=== PATIENT | female | born 1995 | race Caucasian/White ===

== ENCOUNTER 2018-01-19 05:51 | Emergency (ER) | payer BC ==
[~2018-01-19] VITALS: Ht 165.1 cm; Wt 44.2 kg
[~2018-01-19 05:51] MED LIST: CEPH500C5 PO; FLUO20CA22 PO; ONDA4TAB6 PO; PANT-47 PO; PRAZ1CAP5 PO
[2018-01-19] MEDS ORDERED: LORazepam 1 MG tablet PO ONE (06:20)
[2018-01-19] MEDS ORDERED: normal saline 1000ml 1,000 ML IV ONE ×2 (06:20→07:45)
[2018-01-19 07:06] LABS: BASOPHILS # (AUTO) 0.1 X10'3 (0-0.2); BASOPHILS % (AUTO) 0.3 % (0-1); EOSINOPHILS # (AUTO) 0.5 X10'3 (0-0.9); EOSINOPHILS % (AUTO) 2.1 % (0-6); HEMATOCRIT 35.1 % (35.0-45.0); HEMOGLOBIN 12.5 g/dl (12.0-16.0); LYMPHOCYTES # (AUTO) 1.1 X10'3 (1.1-4.8); LYMPHOCYTES % (AUTO) 5.1 % (21-51); MEAN CORPUSCULAR HEMOGLOBIN 31.1 PG (27.0-31.0); MEAN CORPUSCULAR HGB CONC 35.7 % (33.0-36.5); MEAN PLATELET VOLUME 8.8 FL (7.4-10.4); MONOCYTES # (AUTO) 1.3 X10'3 (0-0.9); MONOCYTES % (AUTO) 5.7 % (2-12); NEUTROPHILS # (AUTO) 19.5 X10'3 (1.8-7.7); NEUTROPHILS % (AUTO) 86.8 % (42-75); PLATELET COUNT 298 X10'3 (140-440); RED BLOOD COUNT 4.03 X10'6 (4.20-5.60); RED CELL DISTRIBUTION WIDTH 12.4 % (11.5-14.5); WHITE BLOOD COUNT 22.5 X10'3 (4.5-11.0)
[2018-01-19 07:14] LABS: URINE HCG NEGATIVE (NEG)
[2018-01-19 07:25] LABS: URINE AMPHETAMINE SCREEN NEGATIVE (Neg); URINE BARBITUATE SCREEN NEGATIVE (Neg); URINE BENZODIAZEPINES SCREEN NEGATIVE (Neg); URINE CANNABINOID SCREEN POSITIVE (Neg); URINE COCAINE SCREEN NEGATIVE (Neg); URINE METHADONE SCREEN NEGATIVE (Neg); URINE OPIATE SCREEN NEGATIVE (Neg); URINE PHENCYCLIDINE SCREEN NEGATIVE (Neg)
[2018-01-19 07:31] LABS: ALANINE AMINOTRANSFERASE 28 U/L (12-78); ALBUMIN 4.3 G/DL (3.4-5.0); ALBUMIN/GLOBULIN RATIO 1.2 (1.1-1.5); ALKALINE PHOSPHATASE 68 IU/L (46-116); ANION GAP 13 (8-16); ASPARTATE AMINO TRANSFERASE 24 U/L (10-37); BILIRUBIN,TOTAL 1.9 MG/DL (0.1-1.0); BLOOD UREA NITROGEN 27 MG/DL (7-18); BUN/CREATININE RATIO 39.7 (6.6-38.0); CALCIUM 9.3 MG/DL (8.5-10.1); CHLORIDE 103 MMOL/L (99-107); CREATININE 0.68 MG/DL (0.40-0.90); ETHANOL < 0.010 GM/DL (0.0-0.010); GLUCOSE 147 MG/DL (70-104); POTASSIUM 3.6 MMOL/L (3.5-5.1); SODIUM 141 MMOL/L (135-145); TOTAL CARBON DIOXIDE 24.6 MMOL/L (24-32); TOTAL PROTEIN 7.8 G/DL (6.4-8.2); eGFR > 90 ML/MIN
[2018-01-19 07:33] LABS: ACETAMINOPHEN < 2.0 UG/ML (10-30)
[2018-01-19 08:23] LABS: CLARITY,URINE TURBID (Clear); COLOR,URINE YELLOW (Yellow); GLUCOSE, URINE NEGATIVE (Neg); KETONES,URINE 40 mg/dl (Neg); LEUKOCYTE ESTERASE ,URINE NEGATIVE (Neg); NITRITES, URINE NEGATIVE (Neg); OCCULT BLOOD,URINE SMALL (Neg); PROTEIN,URINE 100 mg/dl (Neg); UROBILINOGEN,URINE 0.2 E.U/dL (0.2-1.0)
[2018-01-19] MEDS ORDERED: pantoprazole 40 MG vial IV ONE (08:25)
[2018-01-19 08:30] LABS: UA COLLECTION TYPE CLN CATCH MIDSTREAM
[2018-01-19] MEDS ORDERED: proCHLORperazine 10 MG/2 ml inj IV ONE (08:35)
[2018-01-19] MEDS ORDERED: ondansetron/PF 4mg/2ml inj IV ONE (08:35)
[2018-01-19 08:38] LABS: RBC,URINE 0-2 /HPF (0-2); WBC,URINE 0-4 /HPF (0-4)
[2018-01-19 08:39] LABS: AMORPHOUS URATES 4+
[2018-01-19 08:41] LABS: SQUAMOUS EPITHELIAL CELL,UR MANY /LPF (FEW)
[2018-01-19 08:43] LABS: BACTERIA,URINE 2+ /HPF (Neg); MUCUS STRANDS MODERATE /LPF (Neg)
[2018-01-19 09:42] LABS: TOTAL CELLS COUNTED 100
[2018-01-19 09:43] LABS: PLATELET ESTIMATE NORMAL; TOXIC GRANULATION 1+
[2018-01-19 10:26] VITALS: BP 108/51
== END 2018-01-19 10:29 | disposition home or self-care (01) ==
LOC: ER 05:52
DX: F41.9 Anxiety disorder, unspecified (principal); K29.70 Gastritis, unspecified, without bleeding; D72.829 Elevated white blood cell count, unspecified; J45.909 Unspecified asthma, uncomplicated; F32.9 Major depressive disorder, single episode, unspecified; F12.90 Cannabis use, unspecified, uncomplicated; Z88.0 Allergy status to penicillin; Z56.0 Unemployment, unspecified; Z88.2 Allergy status to sulfonamides; Z91.14 Patient's other noncompliance with medication regimen
CPT/HCPCS: 36415; 80053; 80305; 80320; 80329; 81001; 81025; 84443; 85025; 96361; 96374; 96375; 99284; C9113; J0780; J2405; J7030

== ENCOUNTER 2018-01-30 02:22 | Emergency (ER) | payer BC ==
[~2018-01-30] VITALS: Ht 165.1 cm; Wt 37.0 kg
[2018-01-30 02:50] LABS: URINE HCG NEGATIVE (NEG)
[2018-01-30 02:51] LABS: CLARITY,URINE SLIGHTLY CLOUDY (Clear); COLOR,URINE YELLOW (Yellow); GLUCOSE, URINE NEGATIVE (Neg); KETONES,URINE >=80 mg/dl (Neg); LEUKOCYTE ESTERASE ,URINE NEGATIVE (Neg); NITRITES, URINE NEGATIVE (Neg); OCCULT BLOOD,URINE SMALL (Neg); PH,URINE 5.5 (4.8-8.0); PROTEIN,URINE 30 mg/dl (Neg); UROBILINOGEN,URINE 0.2 E.U/dL (0.2-1.0)
[2018-01-30 02:55] LABS: UA COLLECTION TYPE CLN CATCH MIDSTREAM
[2018-01-30 03:01] LABS: MUCUS STRANDS MODERATE /LPF (Neg); SQUAMOUS EPITHELIAL CELL,UR MANY /LPF (FEW)
[2018-01-30 03:02] LABS: BACTERIA,URINE 1+ /HPF (Neg); RBC,URINE 0-2 /HPF (0-2); WBC,URINE 0-4 /HPF (0-4)
[2018-01-30] MEDS ORDERED: ondansetron 4mg rapidly disintigrating tab PO ONE (03:10)
[2018-01-30] MEDS ORDERED: pantoprazole 40mg Tablet.DR PO ONE (03:16)
[2018-01-30 04:26] LABS: URINE AMPHETAMINE SCREEN NEGATIVE (Neg); URINE BARBITUATE SCREEN NEGATIVE (Neg); URINE BENZODIAZEPINES SCREEN NEGATIVE (Neg); URINE CANNABINOID SCREEN POSITIVE (Neg); URINE COCAINE SCREEN NEGATIVE (Neg); URINE METHADONE SCREEN NEGATIVE (Neg); URINE OPIATE SCREEN NEGATIVE (Neg); URINE PHENCYCLIDINE SCREEN NEGATIVE (Neg)
[2018-01-30] MEDS ORDERED: ONDA4TAB9 PO (04:33)
[2018-01-30 05:33] VITALS: BP 134/107
[2018-01-30] MEDS ORDERED: pantoprazole 40mg Tablet.DR PO SCH (07:30)
== END 2018-01-30 05:34 | disposition home or self-care (01) ==
LOC: ER 02:22
DX: K29.00 Acute gastritis without bleeding (principal); F12.10 Cannabis abuse, uncomplicated; J45.909 Unspecified asthma, uncomplicated; Z88.0 Allergy status to penicillin; Z88.2 Allergy status to sulfonamides; Z56.0 Unemployment, unspecified; Z79.899 Other long term (current) drug therapy
CPT/HCPCS: 80305; 81001; 81025; 99284

== ENCOUNTER 2018-01-31 08:49 | Emergency (ER) | payer BC ==
[~2018-01-31] VITALS: Ht 165.1 cm; Wt 42.0 kg
[~2018-01-31 08:49] MED LIST changes: +ONDA4TAB9 PO
[2018-01-31 12:54] LABS: BASOPHILS % (AUTO) 0.2 % (0-1); EOSINOPHILS # (AUTO) 0.2 X10'3 (0-0.9); EOSINOPHILS % (AUTO) 1.3 % (0-6); HEMATOCRIT 33.3 % (35.0-45.0); HEMOGLOBIN 11.4 g/dl (12.0-16.0); LYMPHOCYTES # (AUTO) 2.3 X10'3 (1.1-4.8); LYMPHOCYTES % (AUTO) 18.3 % (21-51); MEAN CORPUSCULAR HEMOGLOBIN 30.5 PG (27.0-31.0); MEAN CORPUSCULAR HGB CONC 34.1 % (33.0-36.5); MEAN CORPUSCULAR VOLUME 89.4 FL (78-98); MEAN PLATELET VOLUME 8.1 FL (7.4-10.4); MONOCYTES # (AUTO) 0.8 X10'3 (0-0.9); MONOCYTES % (AUTO) 6.5 % (2-12); NEUTROPHILS # (AUTO) 9.3 X10'3 (1.8-7.7); NEUTROPHILS % (AUTO) 73.7 % (42-75); PLATELET COUNT 228 X10'3 (140-440); RED BLOOD COUNT 3.73 X10'6 (4.20-5.60); RED CELL DISTRIBUTION WIDTH 13.1 % (11.5-14.5); WHITE BLOOD COUNT 12.6 X10'3 (4.5-11.0)
[2018-01-31 13:07] LABS: CLARITY,URINE CLOUDY (Clear); COLOR,URINE YELLOW (Yellow); GLUCOSE, URINE NEGATIVE (Neg); KETONES,URINE TRACE mg/dl (Neg); LEUKOCYTE ESTERASE ,URINE NEGATIVE (Neg); NITRITES, URINE NEGATIVE (Neg); OCCULT BLOOD,URINE NEGATIVE (Neg); PH,URINE 6.5 (4.8-8.0); PROTEIN,URINE NEGATIVE (Neg); UA COLLECTION TYPE CLN CATCH MIDSTREAM; UROBILINOGEN,URINE 0.2 E.U/dL (0.2-1.0)
[2018-01-31 13:13] LABS: BACTERIA,URINE FEW /HPF (Neg); MUCUS STRANDS MODERATE /LPF (Neg); RBC,URINE NONE SEEN /HPF (0-2); SQUAMOUS EPITHELIAL CELL,UR FEW /LPF (FEW); WBC,URINE 0-4 /HPF (0-4)
[2018-01-31 13:14] LABS: AMORPHOUS URATES 2+
[2018-01-31 13:18] LABS: ALANINE AMINOTRANSFERASE 23 U/L (12-78); ALBUMIN 3.8 G/DL (3.4-5.0); ALBUMIN/GLOBULIN RATIO 1.2 (1.1-1.5); ALKALINE PHOSPHATASE 56 IU/L (46-116); ANION GAP 13 (8-16); ASPARTATE AMINO TRANSFERASE 16 U/L (10-37); BILIRUBIN,TOTAL 1.6 MG/DL (0.1-1.0); BLOOD UREA NITROGEN 15 MG/DL (7-18); BUN/CREATININE RATIO 27.8 (6.6-38.0); CALCIUM 8.7 MG/DL (8.5-10.1); CHLORIDE 102 MMOL/L (99-107); CREATININE 0.54 MG/DL (0.40-0.90); GLUCOSE 92 MG/DL (70-104); POTASSIUM 3.6 MMOL/L (3.5-5.1); SODIUM 139 MMOL/L (135-145); TOTAL CARBON DIOXIDE 24.4 MMOL/L (24-32); eGFR > 90 ML/MIN
[2018-01-31 13:27] LABS: URINE AMPHETAMINE SCREEN NEGATIVE (Neg); URINE BARBITUATE SCREEN NEGATIVE (Neg); URINE BENZODIAZEPINES SCREEN NEGATIVE (Neg); URINE CANNABINOID SCREEN POSITIVE (Neg); URINE COCAINE SCREEN NEGATIVE (Neg); URINE METHADONE SCREEN NEGATIVE (Neg); URINE OPIATE SCREEN NEGATIVE (Neg); URINE PHENCYCLIDINE SCREEN NEGATIVE (Neg)
[2018-01-31] MEDS ORDERED: LORazepam 2 mg/ml vial IV ONE (15:45)
[2018-01-31] MEDS ORDERED: normal saline 1000ml 1,000 ML IV ONE (15:45)
[2018-01-31] MEDS ORDERED: ondansetron/PF 4mg/2ml inj IV ONE (15:45)
[2018-02-01 06:03] VITALS: BP 97/70
[2018-02-01] MEDS ORDERED: LORazepam 1 MG tablet PO ONE (08:45)
== END 2018-02-01 13:30 | disposition home or self-care (01) ==
LOC: ER 08:49
DX: F31.9 Bipolar disorder, unspecified (principal); F41.9 Anxiety disorder, unspecified; R45.851 Suicidal ideations; R11.2 Nausea with vomiting, unspecified; J45.909 Unspecified asthma, uncomplicated; F12.10 Cannabis abuse, uncomplicated; Z56.0 Unemployment, unspecified; Z88.0 Allergy status to penicillin; Z88.2 Allergy status to sulfonamides; Z79.899 Other long term (current) drug therapy
CPT/HCPCS: 36415; 80053; 80305; 81001; 84443; 85025; 96361; 96374; 96375; 99284; J2060; J2405; J7030

== ENCOUNTER 2018-03-02 07:27 | Emergency (ER) | payer BC ==
[~2018-03-02] VITALS: Ht 165.1 cm; Wt 45.0 kg
[2018-03-02 07:47] LABS: BASOPHILS # (AUTO) 0.1 X10'3 (0-0.2); BASOPHILS % (AUTO) 0.5 % (0-1); EOSINOPHILS # (AUTO) 0.3 X10'3 (0-0.9); EOSINOPHILS % (AUTO) 1.5 % (0-6); HEMATOCRIT 38.4 % (35.0-45.0); HEMOGLOBIN 13.4 g/dl (12.0-16.0); LYMPHOCYTES # (AUTO) 0.8 X10'3 (1.1-4.8); MEAN CORPUSCULAR HEMOGLOBIN 31.3 PG (27.0-31.0); MEAN CORPUSCULAR VOLUME 89.6 FL (78-98); MEAN PLATELET VOLUME 8.4 FL (7.4-10.4); MONOCYTES # (AUTO) 0.3 X10'3 (0-0.9); MONOCYTES % (AUTO) 1.4 % (2-12); NEUTROPHILS # (AUTO) 19.5 X10'3 (1.8-7.7); NEUTROPHILS % (AUTO) 92.6 % (42-75); PLATELET COUNT 309 X10'3 (140-440); RED BLOOD COUNT 4.29 X10'6 (4.20-5.60); RED CELL DISTRIBUTION WIDTH 13.1 % (11.5-14.5)
[2018-03-02 08:01] LABS: ALANINE AMINOTRANSFERASE 22 U/L (12-78); ALBUMIN 4.6 G/DL (3.4-5.0); ALBUMIN/GLOBULIN RATIO 1.2 (1.1-1.5); ALKALINE PHOSPHATASE 73 IU/L (46-116); ANION GAP 19 (8-16); ASPARTATE AMINO TRANSFERASE 14 U/L (10-37); BILIRUBIN,TOTAL 2.6 MG/DL (0.1-1.0); BLOOD UREA NITROGEN 21 MG/DL (7-18); BUN/CREATININE RATIO 20.2 (6.6-38.0); CALCIUM 9.7 MG/DL (8.5-10.1); CHLORIDE 100 MMOL/L (99-107); CREATININE 1.04 MG/DL (0.40-0.90); GLUCOSE 166 MG/DL (70-104); POTASSIUM 3.7 MMOL/L (3.5-5.1); SODIUM 137 MMOL/L (135-145); TOTAL PROTEIN 8.4 G/DL (6.4-8.2); eGFR 67 ML/MIN
[2018-03-02 08:14] LABS: INR 1.1 INR; PROTHROMBIN TIME 11.4 SECONDS (9.0-12.0)
[2018-03-02 08:15] LABS: CLARITY,URINE SLIGHTLY CLOUDY (Clear); COLOR,URINE YELLOW (Yellow); GLUCOSE, URINE NEGATIVE (Neg); KETONES,URINE >=80 mg/dl (Neg); LEUKOCYTE ESTERASE ,URINE NEGATIVE (Neg); NITRITES, URINE NEGATIVE (Neg); OCCULT BLOOD,URINE TRACE-INTACT (Neg); PROTEIN,URINE 100 mg/dl (Neg); URINE HCG NEGATIVE (NEG); UROBILINOGEN,URINE 0.2 E.U/dL (0.2-1.0)
[2018-03-02 08:24] LABS: UA COLLECTION TYPE CLN CATCH MIDSTREAM
[2018-03-02 08:39] LABS: MUCUS STRANDS MANY /LPF (Neg); SQUAMOUS EPITHELIAL CELL,UR MANY /LPF (FEW)
[2018-03-02 08:40] LABS: BACTERIA,URINE 1+ /HPF (Neg); RBC,URINE 0-2 /HPF (0-2); WBC,URINE 0-4 /HPF (0-4); YEAST FEW /HPF (NEGATIVE)
[2018-03-02] MEDS ORDERED: ondansetron/PF 4mg/2ml inj IV ONE (09:25)
[2018-03-02] MEDS ORDERED: normal saline 1000ML IV soln IV ONE (09:35)
[2018-03-02 10:04] LABS: LIPASE 119 U/L (73-393)
[2018-03-02] MEDS ORDERED: PANT40TA4 PO (10:43)
[2018-03-02] MEDS ORDERED: ONDA4TAB6 PO (10:43)
[2018-03-02] MEDS ORDERED: SUCR1ORA2 PO (10:43)
[2018-03-02 10:48] VITALS: BP 107/63
== END 2018-03-02 10:52 | disposition home or self-care (01) ==
LOC: ER 07:28
DX: R10.13 Epigastric pain (principal); R11.10 Vomiting, unspecified; D72.829 Elevated white blood cell count, unspecified; J45.909 Unspecified asthma, uncomplicated; F12.10 Cannabis abuse, uncomplicated; Z56.0 Unemployment, unspecified; Z88.0 Allergy status to penicillin; Z88.2 Allergy status to sulfonamides; Z79.899 Other long term (current) drug therapy
CPT/HCPCS: 36415; 80053; 81001; 81025; 83605; 83690; 84145; 85025; 85610; 87040; 96361; 96374; 99284; J2405; J7030

== ENCOUNTER 2018-03-29 08:17 | Emergency (ER) | payer BC, OTHER ==
[~2018-03-29] VITALS: Ht 5451.6 cm; Wt 46.7 kg
[~2018-03-29 08:17] MED LIST changes: -ONDA4TAB9 PO; +PANT40TA4 PO; +SUCR1ORA2 PO
[2018-03-29 08:51] LABS: BASOPHILS % (AUTO) 0.1 % (0-1); EOSINOPHILS # (AUTO) 0.2 X10'3 (0-0.9); EOSINOPHILS % (AUTO) 1.9 % (0-6); HEMATOCRIT 39.4 % (35.0-45.0); HEMOGLOBIN 13.5 g/dl (12.0-16.0); LYMPHOCYTES % (AUTO) 10.1 % (21-51); MEAN CORPUSCULAR HEMOGLOBIN 30.9 PG (27.0-31.0); MEAN CORPUSCULAR HGB CONC 34.4 % (33.0-36.5); MEAN PLATELET VOLUME 8.6 FL (7.4-10.4); MONOCYTES # (AUTO) 1.3 X10'3 (0-0.9); MONOCYTES % (AUTO) 13.4 % (2-12); NEUTROPHILS % (AUTO) 74.5 % (42-75); PLATELET COUNT 274 X10'3 (140-440); RED BLOOD COUNT 4.37 X10'6 (4.20-5.60); RED CELL DISTRIBUTION WIDTH 12.8 % (11.5-14.5); WHITE BLOOD COUNT 9.4 X10'3 (4.5-11.0)
[2018-03-29] MEDS ORDERED: LORazepam 2 mg/ml vial IV ONE (09:00)
[2018-03-29] MEDS ORDERED: morphine 4 MG/ML inj SYRINge IV ONE (09:00)
[2018-03-29] MEDS ORDERED: normal saline 1000ML IV soln IVB ONE (09:00)
[2018-03-29 09:01] LABS: PROTHROMBIN TIME 10.7 SECONDS (9.0-12.0)
[2018-03-29 09:02] LABS: CLARITY,URINE CLOUDY (Clear); GLUCOSE, URINE NEGATIVE (Neg); KETONES,URINE TRACE mg/dl (Neg); LEUKOCYTE ESTERASE ,URINE NEGATIVE (Neg); NITRITES, URINE NEGATIVE (Neg); OCCULT BLOOD,URINE NEGATIVE (Neg); PROTEIN,URINE 30 mg/dl (Neg)
[2018-03-29 09:03] LABS: URINE HCG NEGATIVE (NEG)
[2018-03-29 09:04] LABS: COLOR,URINE DARK YELLOW (Yellow); UA COLLECTION TYPE CLN CATCH MIDSTREAM
[2018-03-29 09:06] LABS: ALANINE AMINOTRANSFERASE 26 U/L (12-78); ALBUMIN 4.2 G/DL (3.4-5.0); ALBUMIN/GLOBULIN RATIO 1.1 (1.1-1.5); ALKALINE PHOSPHATASE 71 IU/L (46-116); ANION GAP 14 (8-16); ASPARTATE AMINO TRANSFERASE 28 U/L (10-37); BILIRUBIN,TOTAL 1.5 MG/DL (0.1-1.0); BLOOD UREA NITROGEN 16 MG/DL (7-18); BUN/CREATININE RATIO 18.2 (6.6-38.0); CALCIUM 9.4 MG/DL (8.5-10.1); CHLORIDE 100 MMOL/L (99-107); CREATININE 0.88 MG/DL (0.40-0.90); GLUCOSE 115 MG/DL (70-104); POTASSIUM 3.6 MMOL/L (3.5-5.1); SODIUM 137 MMOL/L (135-145); TOTAL CARBON DIOXIDE 23.3 MMOL/L (24-32); TOTAL PROTEIN 7.9 G/DL (6.4-8.2); eGFR 81 ML/MIN
[2018-03-29 09:14] LABS: BACTERIA,URINE FEW /HPF (Neg); MUCUS STRANDS FEW /LPF (Neg); SQUAMOUS EPITHELIAL CELL,UR MANY /LPF (FEW)
[2018-03-29 09:21] LABS: MAGNESIUM 1.9 MG/DL (1.5-2.4)
[2018-03-29 10:39] VITALS: BP 112/62
[2018-03-29] MEDS ORDERED: CAPS60CR6 TP ×2 (11:10→11:15)
== END 2018-03-29 11:48 | disposition home or self-care (01) ==
LOC: ER 08:17
DX: G43.A0 Cyclical vomiting, in migraine, not intractable (principal); E86.0 Dehydration; J45.909 Unspecified asthma, uncomplicated; F12.10 Cannabis abuse, uncomplicated; Z56.0 Unemployment, unspecified; Z88.0 Allergy status to penicillin; Z88.2 Allergy status to sulfonamides; Z79.899 Other long term (current) drug therapy
CPT/HCPCS: 36415; 80053; 81001; 81025; 83735; 85025; 85610; 96361; 96374; 96375; 99284; J2060; J2270; J7030

== ENCOUNTER 2018-05-12 18:15 | Emergency (ER) | payer BC, OTHER ==
[~2018-05-12] VITALS: Ht 165.1 cm; Wt 47.8 kg
[~2018-05-12 18:15] MED LIST changes: +CAPS60CR6 TP
[2018-05-12 18:36] VITALS: BP 131/71
[2018-05-13] MEDS ORDERED: OLAN5TAB5 PO (08:18)
[2018-05-13] MEDS ORDERED: PROP10TA10 PO (08:18)
[2018-05-14] MEDS ORDERED: ONDA4TAB9 PO (10:11)
== END 2018-05-12 21:18 | disposition left against medical advice (07) ==
LOC: ER 18:15
DX: R11.10 Vomiting, unspecified (principal); Z53.21 Procedure and treatment not carried out due to patient leaving prior to being seen by health care provider

== ENCOUNTER 2018-06-06 05:54 | Emergency (ER) | payer BC ==
[~2018-06-06 05:54] MED LIST changes: -CAPS60CR6 TP; -CEPH500C5 PO; -FLUO20CA22 PO; +OLAN5TAB5 PO; -ONDA4TAB6 PO; +ONDA4TAB9 PO; -PANT-47 PO; -PANT40TA4 PO; -PRAZ1CAP5 PO; +PROP10TA10 PO; -SUCR1ORA2 PO
[2018-06-06] MEDS ORDERED: POTA20TA19 PO (12:24)
== END 2018-06-06 08:02 | disposition left against medical advice (07) ==
LOC: ER 05:55
DX: R11.2 Nausea with vomiting, unspecified (principal); Z53.21 Procedure and treatment not carried out due to patient leaving prior to being seen by health care provider

== ENCOUNTER 2018-06-06 08:44 | Emergency (ER) | payer BC ==
[~2018-06-06] VITALS: Ht 165.1 cm; Wt 48.0 kg
[2018-06-06 09:15] LABS: BASOPHILS # (AUTO) 0.1 X10'3 (0-0.2); BASOPHILS % (AUTO) 0.2 % (0-1); EOSINOPHILS % (AUTO) 0 % (0-6); HEMATOCRIT 38.1 % (35.0-45.0); HEMOGLOBIN 13.2 g/dl (12.0-16.0); LYMPHOCYTES # (AUTO) 0.8 X10'3 (1.1-4.8); MEAN CORPUSCULAR HEMOGLOBIN 31.1 PG (27.0-31.0); MEAN CORPUSCULAR HGB CONC 34.7 % (33.0-36.5); MEAN CORPUSCULAR VOLUME 89.4 FL (78-98); MEAN PLATELET VOLUME 8.7 FL (7.4-10.4); MONOCYTES # (AUTO) 0.8 X10'3 (0-0.9); MONOCYTES % (AUTO) 3.1 % (2-12); NEUTROPHILS # (AUTO) 24.1 X10'3 (1.8-7.7); NEUTROPHILS % (AUTO) 93.7 % (42-75); PLATELET COUNT 281 X10'3 (140-440); RED BLOOD COUNT 4.26 X10'6 (4.20-5.60); RED CELL DISTRIBUTION WIDTH 12.8 % (11.5-14.5)
[2018-06-06 09:17] LABS: WHITE BLOOD COUNT 25.8 X10'3 (4.5-11.0)
[2018-06-06] MEDS ORDERED: normal saline 1000ML IV soln IVB ONE ×3 (09:25→11:35)
[2018-06-06] MEDS ORDERED: ondansetron/PF 4mg/2ml inj IV ONE ×2 (09:25→11:10)
[2018-06-06 09:29] LABS: ALANINE AMINOTRANSFERASE 18 U/L (12-78); ALBUMIN 4.3 G/DL (3.4-5.0); ALBUMIN/GLOBULIN RATIO 1.1 (1.1-1.5); ALKALINE PHOSPHATASE 79 IU/L (46-116); ANION GAP 14 (8-16); ASPARTATE AMINO TRANSFERASE 15 U/L (10-37); BILIRUBIN,TOTAL 1.3 MG/DL (0.1-1.0); BLOOD UREA NITROGEN 20 MG/DL (7-18); CALCIUM 9.4 MG/DL (8.5-10.1); CHLORIDE 102 MMOL/L (99-107); CREATININE 0.74 MG/DL (0.40-0.90); GLUCOSE 136 MG/DL (70-104); SODIUM 138 MMOL/L (135-145); TOTAL CARBON DIOXIDE 21.6 MMOL/L (24-32); TOTAL CELLS COUNTED 100; TOTAL PROTEIN 8.2 G/DL (6.4-8.2); eGFR > 90 ML/MIN
[2018-06-06 09:30] LABS: PLATELET ESTIMATE NORMAL
[2018-06-06 09:31] LABS: POTASSIUM 2.9 MMOL/L (3.5-5.1)
[2018-06-06 10:24] LABS: URINE HCG NEGATIVE (NEG)
[2018-06-06 10:25] LABS: CLARITY,URINE SLIGHTLY CLOUDY (Clear); COLOR,URINE YELLOW (Yellow); GLUCOSE, URINE NEGATIVE (Neg); KETONES,URINE >=80 mg/dl (Neg); LEUKOCYTE ESTERASE ,URINE TRACE (Neg); NITRITES, URINE NEGATIVE (Neg); OCCULT BLOOD,URINE MODERATE (Neg); PH,URINE 8.5 (4.8-8.0); PROTEIN,URINE 30 mg/dl (Neg); UA COLLECTION TYPE CLN CATCH MIDSTREAM; UROBILINOGEN,URINE 0.2 E.U/dL (0.2-1.0)
[2018-06-06 10:31] LABS: RBC,URINE 0-2 /HPF (0-2); WBC,URINE 0-4 /HPF (0-4)
[2018-06-06 10:32] LABS: BACTERIA,URINE FEW /HPF (Neg); MUCUS STRANDS NONE SEEN /LPF (Neg); SQUAMOUS EPITHELIAL CELL,UR FEW /LPF (FEW)
[2018-06-06] MEDS ORDERED: potassium 10mEq/100ml NS w/LIDOcaine (10mg/bag) IV ONE (10:35)
[2018-06-06] MEDS ORDERED: CefTRIAXone 2gm/D5W 50ml 50 ML IV ONE (10:35)
[2018-06-06 10:37] LABS: URINE AMPHETAMINE SCREEN NEGATIVE (Neg); URINE BARBITUATE SCREEN NEGATIVE (Neg); URINE BENZODIAZEPINES SCREEN NEGATIVE (Neg); URINE CANNABINOID SCREEN POSITIVE (Neg); URINE COCAINE SCREEN NEGATIVE (Neg); URINE METHADONE SCREEN NEGATIVE (Neg); URINE OPIATE SCREEN NEGATIVE (Neg); URINE PHENCYCLIDINE SCREEN NEGATIVE (Neg)
[2018-06-06] MEDS ORDERED: morphine 4 MG/ML inj SYRINge IV ONE (11:10)
[2018-06-06] MEDS ORDERED: POTA20TA19 PO (12:24)
[2018-06-06 13:28] VITALS: BP 98/67
== END 2018-06-06 13:20 | disposition home or self-care (01) ==
LOC: ER 08:44
DX: R10.13 Epigastric pain (principal); R11.10 Vomiting, unspecified; E87.6 Hypokalemia; F12.90 Cannabis use, unspecified, uncomplicated; J45.909 Unspecified asthma, uncomplicated; Z88.0 Allergy status to penicillin; Z88.2 Allergy status to sulfonamides; Z79.899 Other long term (current) drug therapy; Z56.0 Unemployment, unspecified
CPT/HCPCS: 36415; 71045; 74176; 80053; 80305; 81001; 81025; 83605; 84145; 85025; 87040; 87088; 93005; 96365; 96366; 96368; 96375; 96376; 99285; J0696; J2270; J2405; J3480; J7030

== ENCOUNTER 2018-08-10 07:50 | Emergency (ER) | payer BC ==
[~2018-08-10] VITALS: Ht 160 cm; Wt 49.9 kg
[~2018-08-10 07:50] MED LIST changes: -ONDA4TAB9 PO; +POTA20TA19 PO
[2018-08-10] MEDS ORDERED: proCHLORperazine 10 MG/2 ml inj IV ONE (08:15)
[2018-08-10] MEDS ORDERED: normal saline 1000ML IV soln IVB ONE (08:15)
[2018-08-10] MEDS ORDERED: LORazepam 2 mg/ml vial IV ONE (08:15)
[2018-08-10 08:31] LABS: BASOPHILS # (AUTO) 0.1 X10'3 (0-0.2); BASOPHILS % (AUTO) 0.2 % (0-1); EOSINOPHILS # (AUTO) 0.4 X10'3 (0-0.9); EOSINOPHILS % (AUTO) 1.8 % (0-6); HEMATOCRIT 37.6 % (35.0-45.0); HEMOGLOBIN 12.8 g/dl (12.0-16.0); LYMPHOCYTES # (AUTO) 1.1 X10'3 (1.1-4.8); LYMPHOCYTES % (AUTO) 4.4 % (21-51); MEAN CORPUSCULAR HEMOGLOBIN 30.7 PG (27.0-31.0); MEAN CORPUSCULAR HGB CONC 34.1 % (33.0-36.5); MEAN CORPUSCULAR VOLUME 89.9 FL (78-98); MEAN PLATELET VOLUME 8.4 FL (7.4-10.4); MONOCYTES # (AUTO) 0.4 X10'3 (0-0.9); MONOCYTES % (AUTO) 1.6 % (2-12); NEUTROPHILS # (AUTO) 22.3 X10'3 (1.8-7.7); PLATELET COUNT 305 X10'3 (140-440); RED BLOOD COUNT 4.18 X10'6 (4.20-5.60); RED CELL DISTRIBUTION WIDTH 13.7 % (11.5-14.5); WHITE BLOOD COUNT 24.2 X10'3 (4.5-11.0)
[2018-08-10 08:42] LABS: INR 1.1 INR; PROTHROMBIN TIME 10.9 SECONDS (9.0-12.0)
[2018-08-10 08:46] LABS: ALANINE AMINOTRANSFERASE 17 U/L (12-78); ALBUMIN 4.4 G/DL (3.4-5.0); ALBUMIN/GLOBULIN RATIO 1.3 (1.1-1.5); ALKALINE PHOSPHATASE 74 IU/L (46-116); ANION GAP 15 (8-16); ASPARTATE AMINO TRANSFERASE 14 U/L (10-37); BILIRUBIN,TOTAL 1.5 MG/DL (0.1-1.0); BLOOD UREA NITROGEN 20 MG/DL (7-18); BUN/CREATININE RATIO 25.6 (6.6-38.0); CALCIUM 9.3 MG/DL (8.5-10.1); CHLORIDE 103 MMOL/L (99-107); CREATININE 0.78 MG/DL (0.40-0.90); ETHANOL < 0.010 GM/DL (0.0-0.010); GLUCOSE 155 MG/DL (70-104); POTASSIUM 3.6 MMOL/L (3.5-5.1); SODIUM 139 MMOL/L (135-145); TOTAL CARBON DIOXIDE 20.7 MMOL/L (24-32); TOTAL PROTEIN 7.8 G/DL (6.4-8.2); eGFR > 90 ML/MIN
[2018-08-10 08:58] LABS: CLARITY,URINE TURBID (Clear); COLOR,URINE YELLOW (Yellow); GLUCOSE, URINE NEGATIVE (Neg); KETONES,URINE >=80 mg/dl (Neg); LEUKOCYTE ESTERASE ,URINE TRACE (Neg); NITRITES, URINE NEGATIVE (Neg); OCCULT BLOOD,URINE LARGE (Neg); PROTEIN,URINE 100 mg/dl (Neg); URINE HCG NEGATIVE (NEG)
[2018-08-10 09:02] LABS: UA COLLECTION TYPE CLN CATCH MIDSTREAM
[2018-08-10 09:04] LABS: MUCUS STRANDS MANY /LPF (Neg); SQUAMOUS EPITHELIAL CELL,UR MANY /LPF (FEW)
[2018-08-10 09:07] LABS: AMORPHOUS PHOSPHATES 4+; BACTERIA,URINE FEW /HPF (Neg); RBC,URINE TNTC /HPF (0-2); WBC,URINE 0-4 /HPF (0-4)
[2018-08-10 09:08] LABS: URINE AMPHETAMINE SCREEN NEGATIVE (Neg); URINE BARBITUATE SCREEN NEGATIVE (Neg); URINE BENZODIAZEPINES SCREEN NEGATIVE (Neg); URINE CANNABINOID SCREEN POSITIVE (Neg); URINE COCAINE SCREEN NEGATIVE (Neg); URINE METHADONE SCREEN NEGATIVE (Neg); URINE OPIATE SCREEN NEGATIVE (Neg); URINE PHENCYCLIDINE SCREEN NEGATIVE (Neg)
[2018-08-10] MEDS ORDERED: ONDA8TAB9 PO (10:59)
[2018-08-10 11:24] VITALS: BP 124/74
== END 2018-08-10 11:25 | disposition home or self-care (01) ==
LOC: ER 07:51
DX: R11.2 Nausea with vomiting, unspecified (principal); J45.909 Unspecified asthma, uncomplicated; F12.90 Cannabis use, unspecified, uncomplicated; Z56.0 Unemployment, unspecified; Z88.0 Allergy status to penicillin; Z88.2 Allergy status to sulfonamides; Z79.899 Other long term (current) drug therapy
CPT/HCPCS: 36415; 80053; 80305; 80320; 81001; 81025; 85025; 85610; 96361; 96374; 96375; 99285; J0780; J2060; J7030

== ENCOUNTER 2019-02-21 22:42 | Emergency (ER) | payer BC ==
[~2019-02-21] VITALS: Ht 165.1 cm; Wt 54.5 kg
[~2019-02-21 22:42] MED LIST changes: +ONDA8TAB9 PO
[2019-02-21 22:55] VITALS: BP 125/79
--- NOTE | 2019-02-21 23:06 | NUR ---
PT CAME INTO TRIAGE HOLDING EMESIS BAG WITH [id number] MLS OF YELLOW LIQUID IN IT, CLEAR. WHEN TRIAGING SHE SUMMONS HER MOM TO GIVE HER THE LEMONAIDE. I SAID, DO NOT DRINK THAT. SHE SAID 'I HAVE TO, I'M GOING TO, THIS WILL BE THE LAST TIME.' AND GULPS SOME LEMONADE. SEVERAL GULPS. MADE AWARE. PATIENT'S MOTHER ALSO STATES THAT HER PSYCHIATRIST SAYS THAT IT IS NOT THE MARIJUANA THAT IS CAUSING THE CYCLIC VOMITING. PATIENT ASKED ME IF DR BARRAGAN WAS HERE "HE DOESN'T BELIEVE ME, HE THINKS ITS THE MARIJUANA."
--- NOTE | 2019-02-21 23:09 | NUR ---
ALSO: MOM SAYS THAT SHE CANNOT GET HER ATIVAN FROM THE PSYCHIATRIST BECAUSE SHE PHYSICALLY NEEDS TO GO THERE TO GET 'URINE CLEARED' BUT HASN'T DONE THIS.
--- NOTE | 2019-02-21 23:33 | NUR ---
RECEIVED REPORT FROM KIERAN CARRILLO. PT SLEEPING IN ROOM AND APPEARS IN NAD. REFUSING VITALS MACHINE REATTACHMENT AND UA
[2019-02-21 23:38] LABS: BASOPHILS # (AUTO) 0.1 X10'3 (0-0.2); BASOPHILS % (AUTO) 0.7 % (0-1); EOSINOPHILS # (AUTO) 0.1 X10'3 (0-0.9); EOSINOPHILS % (AUTO) 0.7 % (0-6); LYMPHOCYTES # (AUTO) 2.7 X10'3 (1.1-4.8); LYMPHOCYTES % (AUTO) 14.9 % (21-51); MEAN CORPUSCULAR HEMOGLOBIN 29.3 PG (27.0-31.0); MEAN CORPUSCULAR HGB CONC 33.3 g/dL (33.0-36.5); MEAN CORPUSCULAR VOLUME 88.1 FL (78-98); MEAN PLATELET VOLUME 8.6 FL (7.4-10.4); MONOCYTES # (AUTO) 1.4 X10'3 (0-0.9); MONOCYTES % (AUTO) 7.6 % (2-12); NEUTROPHILS % (AUTO) 76.1 % (42-75); PLATELET COUNT 350 X10'3 (140-440); RED BLOOD COUNT 4.43 X10'6 (4.20-5.60); RED CELL DISTRIBUTION WIDTH 12.6 % (11.5-14.5); WHITE BLOOD COUNT 18.4 X10'3 (4.5-11.0)
--- NOTE | 2019-02-21 23:52 | NUR ---
PT UNABLE TO URINATE AT THIS TIME. STILL WONT ALLOW VITALS TO BE RECONNECTED
[2019-02-21 23:57] LABS: ALANINE AMINOTRANSFERASE 18 U/L (12-78); ALKALINE PHOSPHATASE 74 IU/L (46-116); ANION GAP 14 (8-16); ASPARTATE AMINO TRANSFERASE 17 U/L (10-37); BLOOD UREA NITROGEN 14 MG/DL (7-18); BUN/CREATININE RATIO 23.3 (6.6-38.0); CALCIUM 9.6 MG/DL (8.5-10.1); CHLORIDE 104 MMOL/L (99-107); GLUCOSE 125 MG/DL (70-104); POTASSIUM 3.4 MMOL/L (3.5-5.1); SODIUM 139 MMOL/L (135-145); TOTAL CARBON DIOXIDE 21.1 MMOL/L (24-32); TOTAL PROTEIN 7.9 G/DL (6.4-8.2); eGFR > 90 ML/MIN
[2019-02-22] MEDS ORDERED: metoclopramide 10mg tablet PO ONE (00:05)
[2019-02-22 00:08] LABS: URINE HCG NEGATIVE (NEG)
[2019-02-22] MEDS ORDERED: metoclopramide 5 mg/ml inj IV ONE (00:25)
[2019-02-22 00:27] LABS: CLARITY,URINE SLIGHTLY CLOUDY (Clear); COLOR,URINE YELLOW (Yellow); GLUCOSE, URINE NEGATIVE (Neg); KETONES,URINE >=80 mg/dl (Neg); LEUKOCYTE ESTERASE ,URINE NEGATIVE (Neg); NITRITES, URINE NEGATIVE (Neg); OCCULT BLOOD,URINE NEGATIVE (Neg); PH,URINE 7.5 (4.8-8.0); PROTEIN,URINE 30 mg/dl (Neg)
--- NOTE | 2019-02-22 00:35 | NUR ---
when informed that she would be getting reglan, pt states "that doesnt work, morphine does." educated pt that she wont be getting narcotics for cyclic vomitting syndrome and she responded "youre not very nice"
[2019-02-22 00:37] LABS: UA COLLECTION TYPE CLN CATCH MIDSTREAM
[2019-02-22 00:52] LABS: BACTERIA,URINE FEW /HPF (Neg); MUCUS STRANDS MODERATE /LPF (Neg); RBC,URINE 0-2 /HPF (0-2); SQUAMOUS EPITHELIAL CELL,UR FEW /LPF (FEW); WBC,URINE 0-4 /HPF (0-4)
[2019-02-22 05:40] LABS: TOTAL CELLS COUNTED 100
[2019-02-22 05:41] LABS: PLATELET ESTIMATE NORMAL
[2019-02-22] MEDS ORDERED: ONDA4TAB6 PO (13:19)
[2019-02-23] MEDS ORDERED: CEPH-572 PO (12:01)
[2019-02-23] MEDS ORDERED: PROC25SU31 RC (12:03)
== END 2019-02-22 00:54 | disposition home or self-care (01) ==
LOC: ER 22:43
DX: G43.A0 Cyclical vomiting, in migraine, not intractable (principal); E86.0 Dehydration; R10.84 Generalized abdominal pain; J45.909 Unspecified asthma, uncomplicated; F12.90 Cannabis use, unspecified, uncomplicated; Z88.0 Allergy status to penicillin; Z88.2 Allergy status to sulfonamides; Z79.899 Other long term (current) drug therapy; Z56.0 Unemployment, unspecified
CPT/HCPCS: 36415; 80053; 81001; 81025; 85025; 96374; 99283; J2765; J8597

== ENCOUNTER 2019-02-23 09:34 | Emergency (ER) | payer BC ==
[~2019-02-23] VITALS: Ht 167.6 cm; Wt 55.7 kg
[~2019-02-23 09:34] MED LIST changes: +ONDA4TAB6 PO
[2019-02-23] MEDS ORDERED: normal saline 1000ML IV soln IVB ONE (10:30)
[2019-02-23] MEDS ORDERED: proCHLORperazine 10 MG/2 ml inj IV ONE (10:30)
[2019-02-23 11:01] LABS: BASOPHILS % (AUTO) 0.2 % (0-1); EOSINOPHILS # (AUTO) 0.1 X10'3 (0-0.9); EOSINOPHILS % (AUTO) 0.3 % (0-6); HEMOGLOBIN 12.1 g/dl (12.0-16.0); LYMPHOCYTES # (AUTO) 1.3 X10'3 (1.1-4.8); LYMPHOCYTES % (AUTO) 8.6 % (21-51); MEAN CORPUSCULAR HEMOGLOBIN 29.7 PG (27.0-31.0); MEAN CORPUSCULAR HGB CONC 33.5 g/dL (33.0-36.5); MEAN CORPUSCULAR VOLUME 88.8 FL (78-98); MEAN PLATELET VOLUME 8.3 FL (7.4-10.4); MONOCYTES # (AUTO) 1.5 X10'3 (0-0.9); MONOCYTES % (AUTO) 9.5 % (2-12); NEUTROPHILS # (AUTO) 12.7 X10'3 (1.8-7.7); NEUTROPHILS % (AUTO) 81.4 % (42-75); PLATELET COUNT 294 X10'3 (140-440); RED BLOOD COUNT 4.05 X10'6 (4.20-5.60); RED CELL DISTRIBUTION WIDTH 12.9 % (11.5-14.5); WHITE BLOOD COUNT 15.6 X10'3 (4.5-11.0)
[2019-02-23 11:11] LABS: ALANINE AMINOTRANSFERASE 15 U/L (12-78); ALBUMIN 3.4 G/DL (3.4-5.0); ALKALINE PHOSPHATASE 63 IU/L (46-116); ANION GAP 8 (8-16); ASPARTATE AMINO TRANSFERASE 18 U/L (10-37); BILIRUBIN,TOTAL 1.7 MG/DL (0.1-1.0); BLOOD UREA NITROGEN 11 MG/DL (7-18); BUN/CREATININE RATIO 16.4 (6.6-38.0); CALCIUM 8.7 MG/DL (8.5-10.1); CHLORIDE 104 MMOL/L (99-107); CREATININE 0.67 MG/DL (0.40-0.90); GLUCOSE 98 MG/DL (70-104); SODIUM 137 MMOL/L (135-145); TOTAL CARBON DIOXIDE 25.4 MMOL/L (24-32); TOTAL PROTEIN 6.9 G/DL (6.4-8.2); eGFR > 90 ML/MIN
[2019-02-23 11:23] LABS: POTASSIUM 2.9 MMOL/L (3.5-5.1)
[2019-02-23 11:27] LABS: CLARITY,URINE SLIGHTLY CLOUDY (Clear); COLOR,URINE YELLOW (Yellow); GLUCOSE, URINE NEGATIVE (Neg); KETONES,URINE 15 mg/dl (Neg); LEUKOCYTE ESTERASE ,URINE TRACE (Neg); NITRITES, URINE NEGATIVE (Neg); OCCULT BLOOD,URINE NEGATIVE (Neg); PROTEIN,URINE TRACE mg/dl (Neg)
[2019-02-23 11:28] LABS: UA COLLECTION TYPE CLN CATCH MIDSTREAM
[2019-02-23] MEDS ORDERED: potassium Cl 20 mEq SR tablet PO STA (11:30)
[2019-02-23 11:33] LABS: SQUAMOUS EPITHELIAL CELL,UR MANY /LPF (FEW)
[2019-02-23 11:34] LABS: MUCUS STRANDS MODERATE /LPF (Neg)
[2019-02-23 11:37] LABS: BACTERIA,URINE 1+ /HPF (Neg); RBC,URINE 0-2 /HPF (0-2)
--- NOTE | 2019-02-23 11:50 | NUR ---
PT GRANDMOTHER CALLED AND STATES SHE IS ON HER WAY, PT NOTIFIED, PT UNHOOKED FROM MONITOR AND IV FLUIDS THAT ARE COMPLETE, PT AMBULATORY TO THE BATHROOM WITH STEADY GAIT
[2019-02-23] MEDS ORDERED: CEPH-572 PO (12:01)
[2019-02-23] MEDS ORDERED: PROC25SU31 RC (12:03)
--- NOTE | 2019-02-23 12:04 | NUR ---
PATIENT TOLERATED 120 ML APPLE JUICE AND 4 REGULAR CRACKERS
[2019-02-23] MEDS ORDERED: LORazepam 2 mg/ml vial IV ONE (12:20)
[2019-02-23] MEDS ORDERED: potassium 10mEq/100ml NS w/LIDOcaine (10mg/bag) IV ONE (12:20)
--- NOTE | 2019-02-23 12:48 | NUR ---
WALKED PATIENT ABOUT 300 FEET AND TALKED WITH HER ABOUT THE POWER OF POSITIVE THINKING AND HOW OUR THOUGHTS CAN SHAPE OUR DAY. PATIENT SEES DR MANUEL. ALSO DISCUSSED PLAN OF CARE WITH LOCO LAM
--- NOTE | 2019-02-23 12:59 | NUR ---
GRANDMOTHER AT BEDSIDE
[2019-02-23 14:36] VITALS: BP 127/61
== END 2019-02-23 14:41 | disposition home or self-care (01) ==
LOC: ER 09:35
DX: N39.0 Urinary tract infection, site not specified (principal); J45.909 Unspecified asthma, uncomplicated; F17.200 Nicotine dependence, unspecified, uncomplicated; F12.90 Cannabis use, unspecified, uncomplicated; Z56.0 Unemployment, unspecified; Z88.0 Allergy status to penicillin; Z88.2 Allergy status to sulfonamides
CPT/HCPCS: 36415; 80053; 81001; 85025; 96361; 96374; 96375; 99283; J0780; J2060; J3480; J7030

== ENCOUNTER 2019-02-25 07:48 | Emergency (ER) | payer BC ==
[~2019-02-25] VITALS: Ht 165.1 cm; Wt 52.0 kg
[~2019-02-25 07:48] MED LIST changes: +CEPH-572 PO; +PROC25SU31 RC
[2019-02-25 08:35] LABS: BASOPHILS # (AUTO) 0.1 X10'3 (0-0.2); BASOPHILS % (AUTO) 0.5 % (0-1); EOSINOPHILS % (AUTO) 0.2 % (0-6); HEMATOCRIT 36.6 % (35.0-45.0); HEMOGLOBIN 12.3 g/dl (12.0-16.0); LYMPHOCYTES # (AUTO) 1.9 X10'3 (1.1-4.8); LYMPHOCYTES % (AUTO) 12.4 % (21-51); MEAN CORPUSCULAR HEMOGLOBIN 29.6 PG (27.0-31.0); MEAN CORPUSCULAR HGB CONC 33.7 g/dL (33.0-36.5); MEAN CORPUSCULAR VOLUME 87.9 FL (78-98); MEAN PLATELET VOLUME 8.7 FL (7.4-10.4); MONOCYTES # (AUTO) 1.3 X10'3 (0-0.9); MONOCYTES % (AUTO) 8.4 % (2-12); NEUTROPHILS # (AUTO) 12.3 X10'3 (1.8-7.7); NEUTROPHILS % (AUTO) 78.5 % (42-75); PLATELET COUNT 339 X10'3 (140-440); RED BLOOD COUNT 4.17 X10'6 (4.20-5.60); WHITE BLOOD COUNT 15.7 X10'3 (4.5-11.0)
[2019-02-25] MEDS ORDERED: haloperidol lactate 5mg/ml inj IM ONE (08:35)
[2019-02-25 08:41] LABS: ALANINE AMINOTRANSFERASE 14 U/L (12-78); ALBUMIN 3.6 G/DL (3.4-5.0); ALKALINE PHOSPHATASE 67 IU/L (46-116); ANION GAP 12 (8-16); ASPARTATE AMINO TRANSFERASE 15 U/L (10-37); BILIRUBIN,TOTAL 1.6 MG/DL (0.1-1.0); BLOOD UREA NITROGEN 7 MG/DL (7-18); BUN/CREATININE RATIO 14.6 (6.6-38.0); CALCIUM 8.6 MG/DL (8.5-10.1); CHLORIDE 105 MMOL/L (99-107); CREATININE 0.48 MG/DL (0.40-0.90); GLUCOSE 90 MG/DL (70-104); POTASSIUM 3.3 MMOL/L (3.5-5.1); SODIUM 139 MMOL/L (135-145); TOTAL PROTEIN 7.2 G/DL (6.4-8.2); eGFR > 90 ML/MIN
[2019-02-25 08:50] LABS: ETHANOL < 0.010 GM/DL (0.0-0.010)
[2019-02-25 08:54] LABS: PLATELET ESTIMATE NORMAL; TOTAL CELLS COUNTED 100
[2019-02-25] MEDS ORDERED: normal saline 1000ML IV soln IVB ONE (09:05)
[2019-02-25] MEDS ORDERED: ondansetron/PF 4mg/2ml inj IV ONE (09:05)
[2019-02-25 09:32] LABS: URINE HCG NEGATIVE (NEG)
[2019-02-25 09:42] LABS: URINE AMPHETAMINE SCREEN NEGATIVE (Neg); URINE BARBITUATE SCREEN NEGATIVE (Neg); URINE BENZODIAZEPINES SCREEN NEGATIVE (Neg); URINE CANNABINOID SCREEN POSITIVE (Neg); URINE COCAINE SCREEN NEGATIVE (Neg); URINE METHADONE SCREEN NEGATIVE (Neg); URINE OPIATE SCREEN NEGATIVE (Neg); URINE PHENCYCLIDINE SCREEN NEGATIVE (Neg)
[2019-02-25 09:44] LABS: CLARITY,URINE SLIGHTLY CLOUDY (Clear); COLOR,URINE YELLOW (Yellow); GLUCOSE, URINE NEGATIVE (Neg); KETONES,URINE >=80 mg/dl (Neg); LEUKOCYTE ESTERASE ,URINE SMALL (Neg); NITRITES, URINE NEGATIVE (Neg); OCCULT BLOOD,URINE TRACE-INTACT (Neg); PROTEIN,URINE TRACE mg/dl (Neg)
[2019-02-25 10:08] LABS: UA COLLECTION TYPE CLN CATCH MIDSTREAM
[2019-02-25 10:09] LABS: WBC,URINE 0-4 /HPF (0-4)
[2019-02-25 10:10] LABS: BACTERIA,URINE 1+ /HPF (Neg); MUCUS STRANDS MANY /LPF (Neg); RBC,URINE 0-2 /HPF (0-2); SQUAMOUS EPITHELIAL CELL,UR MANY /LPF (FEW)
--- NOTE | 2019-02-25 12:00 | NUR ---
relieving RN for break, pt is resting quietly on [facility], waiting for telepsych consult per Dr Alfaro.
--- NOTE | 2019-02-25 12:06 | NUR ---
telepsych initiated, camera is on PCU floor, staff will bring to room 16 when the consult is done
--- NOTE | 2019-02-25 13:11 | NUR ---
SPOKE WITH TELEPSYCH RE PT HE WILL VISIT HER AND CALL BACK
[2019-02-25] MEDS ORDERED: ONDA4TAB6 PO (13:28)
[2019-02-25] MEDS ORDERED: OLANZapine 5mg rapidly disint. tablet PO ONE (13:30)
--- NOTE | 2019-02-25 13:44 | NUR ---
AMBULATED WITH PATIENT HOLDING HER HAND AROUND THE ER: ABOUT 300 FEET, STEADY ON FEET, PATIENT ACTUALLY LAUGHED WITH ME DURING OUR WALK
--- NOTE | 2019-02-25 14:04 | NUR ---
SAMMY BOURNE GAVE PT HER BELONGINGS, PER OBED ALEXANDER, SINCE SHE IS DC'D
[2019-02-25 14:15] VITALS: BP 121/82
== END 2019-02-25 14:20 | disposition home or self-care (01) ==
LOC: ER 07:48
DX: G43.A0 Cyclical vomiting, in migraine, not intractable (principal); F12.10 Cannabis abuse, uncomplicated; F31.9 Bipolar disorder, unspecified; I10 Essential (primary) hypertension; J45.909 Unspecified asthma, uncomplicated; F41.9 Anxiety disorder, unspecified; Z56.0 Unemployment, unspecified; Z79.899 Other long term (current) drug therapy; Z88.0 Allergy status to penicillin; Z88.2 Allergy status to sulfonamides
CPT/HCPCS: 36415; 80053; 80305; 80320; 81001; 81025; 84443; 85025; 96361; 96372; 96374; 99283; J1630; J2405; J7030; 99282

== ENCOUNTER 2019-04-11 03:10 | Emergency (ER) | payer BC ==
[~2019-04-11] VITALS: Ht 165.1 cm; Wt 54.0 kg
[~2019-04-11 03:10] MED LIST changes: -CEPH-572 PO; -PROC25SU31 RC
[2019-04-11 03:14] VITALS: BP 136/92
[2019-04-11] MEDS ORDERED: LORazepam 2 mg/ml vial IV ONE (03:30)
[2019-04-11] MEDS ORDERED: ondansetron/PF 4mg/2ml inj IV ONE (03:30)
[2019-04-11] MEDS ORDERED: normal saline 1000ML IV soln IVB ONE (03:30)
[2019-04-11 03:50] LABS: BASOPHILS % (AUTO) 0.1 % (0-1); HEMOGLOBIN 12.5 g/dl (12.0-16.0); MEAN PLATELET VOLUME 8.4 FL (7.4-10.4); MONOCYTES # (AUTO) 1.3 X10'3 (0-0.9)
[2019-04-11 03:52] LABS: EOSINOPHILS % (AUTO) 0 % (0-6); HEMATOCRIT 36.5 % (35.0-45.0); LYMPHOCYTES % (AUTO) 3.8 % (21-51); MEAN CORPUSCULAR HEMOGLOBIN 30.4 PG (27.0-31.0); MEAN CORPUSCULAR HGB CONC 34.1 g/dL (33.0-36.5); MEAN CORPUSCULAR VOLUME 89.3 FL (78-98); NEUTROPHILS # (AUTO) 24.2 X10'3 (1.8-7.7); NEUTROPHILS % (AUTO) 91.1 % (42-75); PLATELET COUNT 279 X10'3 (140-440); RED BLOOD COUNT 4.09 X10'6 (4.20-5.60)
[2019-04-11 03:58] LABS: WHITE BLOOD COUNT 26.5 X10'3 (4.5-11.0)
[2019-04-11 04:02] LABS: ALANINE AMINOTRANSFERASE 20 U/L (12-78); ALKALINE PHOSPHATASE 79 IU/L (46-116); ANION GAP 14 (8-16); ASPARTATE AMINO TRANSFERASE 15 U/L (10-37); BILIRUBIN,TOTAL 0.8 MG/DL (0.1-1.0); BLOOD UREA NITROGEN 20 MG/DL (7-18); BUN/CREATININE RATIO 31.3 (6.6-38.0); CALCIUM 9.3 MG/DL (8.5-10.1); CHLORIDE 104 MMOL/L (99-107); CREATININE 0.64 MG/DL (0.40-0.90); GLUCOSE 156 MG/DL (70-104); LIPASE 69 U/L (73-393); POTASSIUM 3.5 MMOL/L (3.5-5.1); SODIUM 140 MMOL/L (135-145); TOTAL CARBON DIOXIDE 22.4 MMOL/L (24-32); eGFR > 90 ML/MIN
[2019-04-11 04:51] LABS: PLATELET ESTIMATE NORMAL; TOTAL CELLS COUNTED 100
== END 2019-04-11 04:24 | disposition home or self-care (01) ==
LOC: ER 03:10
DX: E86.0 Dehydration (principal); R11.2 Nausea with vomiting, unspecified; F41.9 Anxiety disorder, unspecified; I10 Essential (primary) hypertension; J45.909 Unspecified asthma, uncomplicated; F31.9 Bipolar disorder, unspecified; F12.90 Cannabis use, unspecified, uncomplicated; Z56.0 Unemployment, unspecified; Z88.0 Allergy status to penicillin; Z88.2 Allergy status to sulfonamides; Z79.899 Other long term (current) drug therapy
CPT/HCPCS: 36415; 80053; 83690; 85025; 96374; 96375; 99283; J2060; J2405; J7030; 96361

== ENCOUNTER 2019-07-13 22:43 | Emergency (ER) | payer BC ==
[~2019-07-13 22:43] MED LIST changes: +PHE25R PR
[2019-07-14] MEDS ORDERED: ONDA4TAB6 PO (06:12)
[2019-07-14] MEDS ORDERED: LORA0.5T PO (07:14)
== END 2019-07-13 23:15 | disposition left against medical advice (07) ==
LOC: ER 22:44
DX: R11.10 Vomiting, unspecified (principal); Z53.21 Procedure and treatment not carried out due to patient leaving prior to being seen by health care provider

== ENCOUNTER 2019-07-14 03:42 | Inpatient (IN) | payer BC ==
[~2019-07-14] VITALS: Ht 165.1 cm; Wt 57.2 kg
[2019-07-14] MEDS ORDERED: normal saline 1000ML IV soln IVB ONE ×2 (03:55→05:05)
[2019-07-14 04:22] LABS: BASOPHILS # (AUTO) 0.1 X10'3 (0-0.2); BASOPHILS % (AUTO) 0.3 % (0-1); EOSINOPHILS % (AUTO) 0 % (0-6); HEMATOCRIT 37.6 % (35.0-45.0); HEMOGLOBIN 12.4 g/dl (12.0-16.0); LYMPHOCYTES # (AUTO) 0.9 X10'3 (1.1-4.8); LYMPHOCYTES % (AUTO) 3.1 % (21-51); MEAN CORPUSCULAR HEMOGLOBIN 29.6 PG (27.0-31.0); MEAN CORPUSCULAR HGB CONC 33.1 g/dL (33.0-36.5); MEAN CORPUSCULAR VOLUME 89.5 FL (78-98); MEAN PLATELET VOLUME 8.2 FL (7.4-10.4); MONOCYTES # (AUTO) 1.1 X10'3 (0-0.9); MONOCYTES % (AUTO) 3.8 % (2-12); NEUTROPHILS # (AUTO) 27.3 X10'3 (1.8-7.7); NEUTROPHILS % (AUTO) 92.8 % (42-75); PLATELET COUNT 329 X10'3 (140-440); RED CELL DISTRIBUTION WIDTH 12.6 % (11.5-14.5)
[2019-07-14 04:28] LABS: WHITE BLOOD COUNT 29.4 X10'3 (4.5-11.0)
[2019-07-14 04:37] LABS: ALANINE AMINOTRANSFERASE 23 U/L (12-78); ALBUMIN 4.3 G/DL (3.4-5.0); ALBUMIN/GLOBULIN RATIO 1.1 (1.1-1.5); ALKALINE PHOSPHATASE 76 IU/L (46-116); ANION GAP 14 (8-16); ASPARTATE AMINO TRANSFERASE 15 U/L (10-37); BILIRUBIN,TOTAL 0.9 MG/DL (0.1-1.0); BLOOD UREA NITROGEN 18 MG/DL (7-18); BUN/CREATININE RATIO 26.5 (6.6-38.0); CALCIUM 9.6 MG/DL (8.5-10.1); CHLORIDE 103 MMOL/L (99-107); CREATININE 0.68 MG/DL (0.40-0.90); GLUCOSE 162 MG/DL (70-104); POTASSIUM 3.4 MMOL/L (3.5-5.1); SODIUM 139 MMOL/L (135-145); TOTAL CARBON DIOXIDE 22.1 MMOL/L (24-32); TOTAL PROTEIN 8.2 G/DL (6.4-8.2); eGFR > 90 ML/MIN
--- NOTE | 2019-07-14 04:51 | NUR ---
WBC of [address] Alfaro
[2019-07-14] MEDS ORDERED: ondansetron/PF 4mg/2ml inj IV ONE (05:00)
[2019-07-14] MEDS ORDERED: haloperidol lactate 5mg/ml inj IM ONE (05:00)
[2019-07-14 05:08] LABS: URINE HCG NEGATIVE (NEG)
[2019-07-14 05:09] LABS: CLARITY,URINE CLOUDY (Clear); COLOR,URINE YELLOW (Yellow); GLUCOSE, URINE NEGATIVE (Neg); KETONES,URINE >=80 mg/dl (Neg); LEUKOCYTE ESTERASE ,URINE NEGATIVE (Neg); NITRITES, URINE NEGATIVE (Neg); OCCULT BLOOD,URINE NEGATIVE (Neg); PH,URINE >=9.0 (4.8-8.0); PROTEIN,URINE 30 mg/dl (Neg); UA COLLECTION TYPE CLN CATCH MIDSTREAM; UROBILINOGEN,URINE 0.2 E.U/dL (0.2-1.0)
[2019-07-14 05:19] LABS: URINE AMPHETAMINE SCREEN NEGATIVE (Neg); URINE BARBITUATE SCREEN NEGATIVE (Neg); URINE BENZODIAZEPINES SCREEN NEGATIVE (Neg); URINE CANNABINOID SCREEN POSITIVE (Neg); URINE COCAINE SCREEN NEGATIVE (Neg); URINE METHADONE SCREEN NEGATIVE (Neg); URINE OPIATE SCREEN NEGATIVE (Neg); URINE PHENCYCLIDINE SCREEN NEGATIVE (Neg)
[2019-07-14 05:29] LABS: RBC,URINE NONE SEEN /HPF (0-2); WBC,URINE 0-4 /HPF (0-4)
[2019-07-14 05:30] LABS: AMORPHOUS PHOSPHATES 4+; BACTERIA,URINE FEW /HPF (Neg); MUCUS STRANDS MANY /LPF (Neg); SQUAMOUS EPITHELIAL CELL,UR MANY /LPF (FEW)
[2019-07-14 05:46] LABS: PLATELET ESTIMATE NORMAL; TOTAL CELLS COUNTED 100
[2019-07-14] MEDS ORDERED: pantoprazole 40 MG vial IV ONE (06:00)
[2019-07-14] MEDS ORDERED: famotidine/PF 10 mg/ml inj IV ONE (06:00)
[2019-07-14] MEDS ORDERED: ONDA4TAB6 PO (06:12)
[2019-07-14] MEDS ORDERED: LORA0.5T PO (07:14)
[2019-07-14] MEDS ORDERED: acetaminophen 325mg tablet PO PRN (07:40)
[2019-07-14] MEDS ORDERED: HYDROcodone/acetaminophen 5mg/325mg tablet PO PRN (07:40)
[2019-07-14] MEDS ORDERED: HYDROcodone/acetaminophen 10/325mg tab PO PRN (07:40)
[2019-07-14] MEDS ORDERED: LORazepam 0.5 MG tablet PO PRN (07:40)
[2019-07-14] MEDS ORDERED: mag hydrox/Alum hydrox/simeth 30ml oral suspension PO PRN (07:40)
[2019-07-14] MEDS ORDERED: metoclopramide 5 mg/ml inj IV PRN (07:40)
[2019-07-14] MEDS ORDERED: morphine 2 MG/ML inj. syringe IV PRN ×2 (07:40)
[2019-07-14] MEDS ORDERED: magnesium hydroxide 30ml (MOM) UD suspension PO PRN (07:40)
[2019-07-14] MEDS: propranolol 10mg tablet PO SCH (08:00)
[2019-07-14] MEDS: ondansetron/PF 4mg/2ml inj IV PRN ×2 (08:51→19:27)
[2019-07-14] MEDS: dextrose 5%-1/2 normal saline 1,000 ML IV SCH ×2 (08:54→20:20)
[2019-07-14 17:46] VITALS: BP 109/74
[2019-07-14 18:00] VITALS: BP 116/77
--- NOTE | 2019-07-14 18:30 | NUR ---
Patient in room [facility]. I have received report from LORENA Alfred and had the opportunity to ask questions and assume patient care.
[2019-07-14] MEDS ORDERED: potassium Cl 20 mEq SR tablet PO PRN (20:00)
[2019-07-14] MEDS ORDERED: magnesium 4gm in 100ml NS 100 ML IV PRN (20:00)
[2019-07-14] MEDS ORDERED: temazepam 15mg capsule PO PRN (20:00)
[2019-07-14] MEDS ORDERED: magnesium Cl slow-release 64mg tablet PO PRN (20:00)
[2019-07-14] MEDS ORDERED: potassium CL 10mEq/100ml bag 100 ML IV PRN (20:00)
[2019-07-14] MEDS: potassium Cl 20 mEq SR tablet PO PRN (20:20)
[2019-07-14] MEDS ORDERED: OLANZapine 5mg rapidly disint. tablet PO SCH (21:00)
[2019-07-15] VITALS: BP 99/54
[2019-07-15] MEDS: potassium Cl 20 mEq SR tablet PO PRN ×2 (00:38→08:03)
[2019-07-15] MEDS: dextrose 5%-1/2 normal saline 1,000 ML IV SCH (05:00)
--- NOTE | 2019-07-15 06:20 | NUR ---
Problems reprioritized. Patient report given, questions answered & plan of care reviewed with LORENA Pascal.
--- NOTE | 2019-07-15 06:21 | NUR ---
Patient in room [facility]. I have received report from LORENA MUNOZ and had the opportunity to ask questions and assume patient care.
[2019-07-15 06:26] LABS: ALBUMIN 3.1 G/DL (3.4-5.0); ANION GAP 8 (8-16); BLOOD UREA NITROGEN 4 MG/DL (7-18); BUN/CREATININE RATIO 9.3 (6.6-38.0); CALCIUM 8.1 MG/DL (8.5-10.1); CHLORIDE 109 MMOL/L (99-107); CREATININE 0.43 MG/DL (0.40-0.90); GLUCOSE 93 MG/DL (70-104); POTASSIUM 3.4 MMOL/L (3.5-5.1); SODIUM 142 MMOL/L (135-145); TOTAL CARBON DIOXIDE 25.1 MMOL/L (24-32); eGFR > 90 ML/MIN
[2019-07-15 06:27] LABS: BASOPHILS % (AUTO) 0.3 % (0-1); EOSINOPHILS # (AUTO) 0.2 X10'3 (0-0.9); EOSINOPHILS % (AUTO) 1.7 % (0-6); HEMATOCRIT 31.9 % (35.0-45.0); HEMOGLOBIN 10.9 g/dl (12.0-16.0); LYMPHOCYTES # (AUTO) 2.8 X10'3 (1.1-4.8); LYMPHOCYTES % (AUTO) 21.3 % (21-51); MEAN CORPUSCULAR VOLUME 91.3 FL (78-98); MEAN PLATELET VOLUME 8.5 FL (7.4-10.4); MONOCYTES # (AUTO) 1.3 X10'3 (0-0.9); NEUTROPHILS # (AUTO) 8.8 X10'3 (1.8-7.7); NEUTROPHILS % (AUTO) 66.7 % (42-75); PLATELET COUNT 246 X10'3 (140-440); RED CELL DISTRIBUTION WIDTH 12.9 % (11.5-14.5); WHITE BLOOD COUNT 13.2 X10'3 (4.5-11.0)
[2019-07-15 07:22] VITALS: BP 102/57
[2019-07-15] MEDS: propranolol 10mg tablet PO SCH (07:59)
[2019-07-15 08:00] VITALS: BP_SYST 105; BP_SYST 112; BP_SYST 118; BP_DIAS 69; BP_DIAS 73
[2019-07-15] MEDS ORDERED: PROC25SU31 RC (09:14)
--- NOTE | 2019-07-15 10:11 | NUR ---
Discussed with patient discharge instructions and new prescription for compazine suppository. Patient verbalizes understanding of discharge teaching. Patient ready to be discharged but is waiting for her transport home.
--- NOTE | 2019-07-15 10:44 | NUR ---
patient dc'd with all personal belongings accompanied by [facility] staff.
== END 2019-07-15 10:30 | disposition home or self-care (01) | DRG 641 ==
LOC: ER 03:43 → SUR 3N 13:30 → CMPBEDREQ 19:44
PROVIDERS: ADMIT Internal Medicine; ATTEND Internal Medicine
DX: E86.0 Dehydration (principal); N17.9 Acute kidney failure, unspecified; F41.1 Generalized anxiety disorder; D72.829 Elevated white blood cell count, unspecified; F12.188 Cannabis abuse with other cannabis-induced disorder; F31.9 Bipolar disorder, unspecified; I10 Essential (primary) hypertension; J45.909 Unspecified asthma, uncomplicated; Z79.899 Other long term (current) drug therapy; Z80.3 Family history of malignant neoplasm of breast; Z88.0 Allergy status to penicillin; Z88.2 Allergy status to sulfonamides; Z84.89 Family history of other specified conditions
CPT/HCPCS: 36415; 71045; 74176; 80048; 80053; 80305; 81001; 81025; 82948; 83605; 84145; 85025; 87040; 87081; 96361; 96372; 96374; 96375; 99285; C9113; G0378; J1630; J2405; J2765; J3490

== ENCOUNTER 2019-09-02 18:34 | Emergency (ER) | payer BC ==
[~2019-09-02 18:34] MED LIST changes: +LORA0.5T PO; -ONDA4TAB6 PO; -ONDA8TAB9 PO; -PHE25R PR; -POTA20TA19 PO
[2019-09-03] MEDS ORDERED: ONDA4TAB6 PO ×2 (01:24→04:31)
== END 2019-09-02 19:15 | disposition left against medical advice (07) ==
LOC: ER 18:34
DX: R11.10 Vomiting, unspecified (principal); Z53.21 Procedure and treatment not carried out due to patient leaving prior to being seen by health care provider

== ENCOUNTER 2019-09-03 00:30 | Emergency (ER) | payer BC ==
[~2019-09-03] VITALS: Ht 165.1 cm; Wt 56.0 kg
[2019-09-03] MEDS ORDERED: normal saline 1000ML IV soln IVB ONE ×3 (01:00→03:10)
[2019-09-03 01:09] LABS: CLARITY,URINE CLEAR (Clear); COLOR,URINE YELLOW (Yellow); GLUCOSE, URINE NEGATIVE (Neg); KETONES,URINE >=80 mg/dl (Neg); LEUKOCYTE ESTERASE ,URINE NEGATIVE (Neg); NITRITES, URINE NEGATIVE (Neg); OCCULT BLOOD,URINE TRACE-INTACT (Neg); PROTEIN,URINE 100 mg/dl (Neg); UROBILINOGEN,URINE 0.2 E.U/dL (0.2-1.0)
[2019-09-03 01:10] LABS: URINE HCG NEGATIVE (NEG)
[2019-09-03 01:11] LABS: UA COLLECTION TYPE CLN CATCH MIDSTREAM
[2019-09-03 01:14] LABS: RBC,URINE 0-2 /HPF (0-2); WBC,URINE 0-4 /HPF (0-4)
[2019-09-03 01:15] LABS: BACTERIA,URINE FEW /HPF (Neg); MUCUS STRANDS MODERATE /LPF (Neg); SQUAMOUS EPITHELIAL CELL,UR MANY /LPF (FEW)
[2019-09-03] MEDS ORDERED: haloperidol lactate 5mg/ml inj IM ONE (01:15)
[2019-09-03] MEDS ORDERED: ondansetron 4mg rapidly disintigrating tab PO ONE (01:15)
--- NOTE | 2019-09-03 01:21 | NUR ---
PT DRINKING FROM SINK IN ROOM AFTER MD HAD INFORMED HER SHE COULD HAVE NOTHING BY MOUTH INSTRUCTED PATIENT TO RETURN TO HER BED AND NOT TO DRINK FROM THE SINK.
[2019-09-03] MEDS ORDERED: ONDA4TAB6 PO ×2 (01:24→04:31)
[2019-09-03 01:28] LABS: MONOCYTES # (AUTO) 1.1 X10'3 (0-0.9); MONOCYTES % (AUTO) 3.4 % (2-12); RED BLOOD COUNT 4.33 X10'6 (4.20-5.60)
[2019-09-03 01:30] LABS: BASOPHILS # (AUTO) 0.1 X10'3 (0-0.2); BASOPHILS % (AUTO) 0.2 % (0-1); EOSINOPHILS % (AUTO) 0 % (0-6); HEMATOCRIT 38.8 % (35.0-45.0); HEMOGLOBIN 13.4 g/dl (12.0-16.0); LYMPHOCYTES # (AUTO) 1.7 X10'3 (1.1-4.8); LYMPHOCYTES % (AUTO) 5.4 % (21-51); MEAN CORPUSCULAR HGB CONC 34.6 g/dL (33.0-36.5); MEAN CORPUSCULAR VOLUME 89.6 FL (78-98); NEUTROPHILS # (AUTO) 29.7 X10'3 (1.8-7.7); PLATELET COUNT 343 X10'3 (140-440); RED CELL DISTRIBUTION WIDTH 12.4 % (11.5-14.5)
[2019-09-03 01:36] LABS: ALANINE AMINOTRANSFERASE 19 U/L (12-78); ALBUMIN 4.7 G/DL (3.4-5.0); ALBUMIN/GLOBULIN RATIO 1.1 (1.1-1.5); ALKALINE PHOSPHATASE 84 IU/L (46-116); ANION GAP 19 (8-16); ASPARTATE AMINO TRANSFERASE 19 U/L (10-37); BILIRUBIN,TOTAL 1.2 MG/DL (0.1-1.0); BLOOD UREA NITROGEN 28 MG/DL (7-18); BUN/CREATININE RATIO 30.8 (6.6-38.0); CALCIUM 9.6 MG/DL (8.5-10.1); CHLORIDE 101 MMOL/L (99-107); CREATININE 0.91 MG/DL (0.40-0.90); GLUCOSE 165 MG/DL (70-104); POTASSIUM 3.5 MMOL/L (3.5-5.1); SODIUM 140 MMOL/L (135-145); TOTAL PROTEIN 9.1 G/DL (6.4-8.2); eGFR 77 ML/MIN
[2019-09-03 01:43] LABS: WHITE BLOOD COUNT 32.6 X10'3 (4.5-11.0)
[2019-09-03 01:47] LABS: LYMPHOCYTES % (MANUAL) 6 % (21-51); MONOCYTES % (MANUAL) 3 % (2-12); NEUTROPHILS % (MANUAL) 91 % (42-75); PLATELET ESTIMATE NORMAL; TOTAL CELLS COUNTED 100
[2019-09-03 02:08] LABS: URINE AMPHETAMINE SCREEN NEGATIVE (Neg); URINE BARBITUATE SCREEN NEGATIVE (Neg); URINE BENZODIAZEPINES SCREEN NEGATIVE (Neg); URINE CANNABINOID SCREEN POSITIVE (Neg); URINE COCAINE SCREEN NEGATIVE (Neg); URINE METHADONE SCREEN NEGATIVE (Neg); URINE OPIATE SCREEN NEGATIVE (Neg); URINE PHENCYCLIDINE SCREEN NEGATIVE (Neg)
[2019-09-03 02:22] LABS: HEMOGLOBIN A1C 5.2 % (4.5-6.2)
[2019-09-03] MEDS ORDERED: normal saline 1000ML IV soln IV ONE (03:00)
[2019-09-03 03:44] VITALS: BP 126/68
== END 2019-09-03 04:39 | disposition home or self-care (01) ==
LOC: ER 00:31
DX: F12.188 Cannabis abuse with other cannabis-induced disorder (principal); R11.2 Nausea with vomiting, unspecified; I10 Essential (primary) hypertension; J45.909 Unspecified asthma, uncomplicated; F41.9 Anxiety disorder, unspecified; F32.9 Major depressive disorder, single episode, unspecified; F12.90 Cannabis use, unspecified, uncomplicated; Z56.0 Unemployment, unspecified; Z88.0 Allergy status to penicillin; Z88.2 Allergy status to sulfonamides; Z79.899 Other long term (current) drug therapy
CPT/HCPCS: 36415; 74176; 80053; 80305; 81001; 81025; 83036; 83605; 84145; 85025; 87040; 96372; 99284; J1630; J7030; 96360

== ENCOUNTER 2019-10-12 07:07 | Emergency (ER) | payer BC ==
[~2019-10-12] VITALS: Ht 165.1 cm; Wt 59.1 kg
[~2019-10-12 07:07] MED LIST changes: +ONDA4TAB6 PO
[2019-10-12] MEDS ORDERED: metoclopramide 5 mg/ml inj IV ONE (08:05)
[2019-10-12] MEDS ORDERED: LORazepam 2 mg/ml vial IV ONE (08:10)
--- NOTE | 2019-10-12 09:33 | NUR ---
PT MUCH MORE CALM AND RESTING NO. REFUSING TO GIVE U/A. NOTIFIED.
[2019-10-12] MEDS ORDERED: ONDA4TAB6 PO (09:43)
[2019-10-12 12:25] VITALS: BP 119/67
== END 2019-10-12 12:27 | disposition home or self-care (01) ==
LOC: ER 07:08
DX: R11.2 Nausea with vomiting, unspecified (principal); I10 Essential (primary) hypertension; J45.909 Unspecified asthma, uncomplicated; F12.90 Cannabis use, unspecified, uncomplicated; Z56.0 Unemployment, unspecified; Z88.0 Allergy status to penicillin; Z88.2 Allergy status to sulfonamides; Z79.899 Other long term (current) drug therapy
CPT/HCPCS: 96374; 96375; 99283; J2060; J2765

== ENCOUNTER 2019-11-23 00:11 | Emergency (ER) | payer BC ==
[~2019-11-23] VITALS: Ht 165.1 cm; Wt 56.8 kg
--- NOTE | 2019-11-23 01:00 | NUR ---
PT IS ANXIOUS AND RESTLESS IN ROOM AND CANNOT SIT DOWN AND STAY IN ONE PLACE. PT STEPFATHER IS AT BEDSIDE. PT DENIES USE OF ANY DRUGS , STATES SHE ONLY SMOKES MARAJUANA MIXED WITH NICOTINE CIGARETTS 6 TIMES A DAY.
[2019-11-23 01:11] LABS: CLARITY,URINE CLEAR (Clear); COLOR,URINE YELLOW (Yellow); GLUCOSE, URINE NEGATIVE (Neg); KETONES,URINE >=80 mg/dl (Neg); LEUKOCYTE ESTERASE ,URINE NEGATIVE (Neg); NITRITES, URINE NEGATIVE (Neg); OCCULT BLOOD,URINE SMALL (Neg); PROTEIN,URINE 100 mg/dl (Neg); UROBILINOGEN,URINE 0.2 E.U/dL (0.2-1.0)
[2019-11-23 01:12] LABS: URINE HCG NEGATIVE (NEG)
[2019-11-23 01:18] LABS: UA COLLECTION TYPE CLN CATCH MIDSTREAM
[2019-11-23 01:19] LABS: BACTERIA,URINE FEW /HPF (Neg); MUCUS STRANDS FEW /LPF (Neg); RBC,URINE 0-2 /HPF (0-2); SQUAMOUS EPITHELIAL CELL,UR FEW /LPF (FEW); WBC,URINE 0-4 /HPF (0-4)
[2019-11-23 01:25] LABS: URINE AMPHETAMINE SCREEN NEGATIVE (Neg); URINE BARBITUATE SCREEN NEGATIVE (Neg); URINE BENZODIAZEPINES SCREEN POSITIVE (Neg); URINE CANNABINOID SCREEN POSITIVE (Neg); URINE COCAINE SCREEN NEGATIVE (Neg); URINE METHADONE SCREEN NEGATIVE (Neg); URINE OPIATE SCREEN NEGATIVE (Neg); URINE PHENCYCLIDINE SCREEN NEGATIVE (Neg)
[2019-11-23 01:29] LABS: BASOPHILS # (AUTO) 0.1 X10'3 (0-0.2); BASOPHILS % (AUTO) 0.3 % (0-1); EOSINOPHILS % (AUTO) 0 % (0-6); HEMATOCRIT 37.7 % (35.0-45.0); HEMOGLOBIN 12.9 g/dl (12.0-16.0); LYMPHOCYTES # (AUTO) 1.6 X10'3 (1.1-4.8); LYMPHOCYTES % (AUTO) 6.2 % (21-51); MEAN CORPUSCULAR HEMOGLOBIN 30.3 PG (27.0-31.0); MEAN CORPUSCULAR HGB CONC 34.3 g/dL (33.0-36.5); MEAN CORPUSCULAR VOLUME 88.4 FL (78-98); MEAN PLATELET VOLUME 8.9 FL (7.4-10.4); MONOCYTES # (AUTO) 1.9 X10'3 (0-0.9); MONOCYTES % (AUTO) 7.2 % (2-12); NEUTROPHILS # (AUTO) 22.9 X10'3 (1.8-7.7); NEUTROPHILS % (AUTO) 86.3 % (42-75); PLATELET COUNT 319 X10'3 (140-440); RED BLOOD COUNT 4.26 X10'6 (4.20-5.60); RED CELL DISTRIBUTION WIDTH 12.8 % (11.5-14.5)
[2019-11-23 01:40] LABS: WHITE BLOOD COUNT 26.5 X10'3 (4.5-11.0)
[2019-11-23 01:41] LABS: ALANINE AMINOTRANSFERASE 21 U/L (12-78); ALBUMIN 4.4 G/DL (3.4-5.0); ALBUMIN/GLOBULIN RATIO 1.1 (1.1-1.5); ALKALINE PHOSPHATASE 81 IU/L (46-116); ANION GAP 15 (8-16); ASPARTATE AMINO TRANSFERASE 21 U/L (10-37); BILIRUBIN,TOTAL 1.5 MG/DL (0.1-1.0); BLOOD UREA NITROGEN 22 MG/DL (7-18); BUN/CREATININE RATIO 29.7 (6.6-38.0); CALCIUM 9.4 MG/DL (8.5-10.1); CHLORIDE 103 MMOL/L (99-107); CREATININE 0.74 MG/DL (0.40-0.90); GLUCOSE 149 MG/DL (70-104); LIPASE 87 U/L (73-393); SODIUM 144 MMOL/L (135-145); TOTAL CARBON DIOXIDE 25.9 MMOL/L (24-32); TOTAL PROTEIN 8.4 G/DL (6.4-8.2); eGFR > 90 ML/MIN
[2019-11-23 02:19] LABS: TOTAL CELLS COUNTED 100
[2019-11-23 02:20] LABS: PLATELET ESTIMATE NORMAL
[2019-11-23] MEDS ORDERED: pantoprazole 40 MG vial IV ONE (02:35)
[2019-11-23] MEDS ORDERED: LORazepam 2 mg/ml vial IV ONE (02:35)
[2019-11-23] MEDS ORDERED: proCHLORperazine 10 MG/2 ml inj IV ONE (02:35)
[2019-11-23] MEDS ORDERED: potassium Cl 10 mEq/100mL bag IV ONE (02:35)
[2019-11-23] MEDS ORDERED: normal saline 1000ML IV soln IVB ONE (02:35)
--- NOTE | 2019-11-23 02:35 | NUR ---
Patient is with
--- NOTE | 2019-11-23 03:32 | NUR ---
Patient is now getting fluids and potassium, she is sleeping comfortably on gurney.
[2019-11-23 04:46] VITALS: BP 81/47
== END 2019-11-23 04:49 | disposition home or self-care (01) ==
LOC: ER 00:12
DX: F41.9 Anxiety disorder, unspecified (principal); R11.10 Vomiting, unspecified; R10.13 Epigastric pain; I10 Essential (primary) hypertension; J45.909 Unspecified asthma, uncomplicated; F31.9 Bipolar disorder, unspecified; F17.200 Nicotine dependence, unspecified, uncomplicated; F12.90 Cannabis use, unspecified, uncomplicated; Z56.0 Unemployment, unspecified; Z88.0 Allergy status to penicillin; Z88.2 Allergy status to sulfonamides; Z79.899 Other long term (current) drug therapy
CPT/HCPCS: 36415; 80053; 80305; 81001; 81025; 83690; 85025; 96361; 96374; 96375; 99284; C9113; J0780; J2060; J3480; J7030; 96365

== ENCOUNTER 2019-12-30 12:13 | Emergency (ER) | payer BC ==
[~2019-12-30] VITALS: Ht 165.1 cm; Wt 54.5 kg
[2019-12-30] MEDS ORDERED: LORazepam 2 mg/ml vial IM ONE ×2 (12:25→14:00)
[2019-12-30] MEDS ORDERED: haloperidol lactate 5mg/ml inj IM ONE (12:25)
[2019-12-30 12:30] LABS: BASOPHILS # (AUTO) 0.1 X10'3 (0-0.2); BASOPHILS % (AUTO) 0.3 % (0-1); EOSINOPHILS % (AUTO) 0 % (0-6); HEMATOCRIT 37.8 % (35.0-45.0); HEMOGLOBIN 12.9 g/dl (12.0-16.0); LYMPHOCYTES % (AUTO) 3.3 % (21-51); MEAN CORPUSCULAR HEMOGLOBIN 29.9 PG (27.0-31.0); MEAN CORPUSCULAR HGB CONC 34.1 g/dL (33.0-36.5); MEAN CORPUSCULAR VOLUME 87.7 FL (78-98); MEAN PLATELET VOLUME 8.5 FL (7.4-10.4); MONOCYTES # (AUTO) 1.4 X10'3 (0-0.9); MONOCYTES % (AUTO) 4.5 % (2-12); NEUTROPHILS % (AUTO) 91.9 % (42-75); PLATELET COUNT 352 X10'3 (140-440); RED BLOOD COUNT 4.31 X10'6 (4.20-5.60); RED CELL DISTRIBUTION WIDTH 12.8 % (11.5-14.5)
[2019-12-30 12:36] LABS: WHITE BLOOD COUNT 30.4 X10'3 (4.5-11.0)
[2019-12-30 12:44] LABS: ALANINE AMINOTRANSFERASE 20 U/L (12-78); ALBUMIN 4.4 G/DL (3.4-5.0); ALBUMIN/GLOBULIN RATIO 1.2 (1.1-1.5); ALKALINE PHOSPHATASE 81 IU/L (46-116); ANION GAP 13 (8-16); ASPARTATE AMINO TRANSFERASE 18 U/L (10-37); BILIRUBIN,TOTAL 1.1 MG/DL (0.1-1.0); BLOOD UREA NITROGEN 19 MG/DL (7-18); BUN/CREATININE RATIO 27.5 (6.6-38.0); CALCIUM 9.5 MG/DL (8.5-10.1); CHLORIDE 106 MMOL/L (99-107); CREATININE 0.69 MG/DL (0.40-0.90); GLUCOSE 127 MG/DL (70-104); LIPASE 73 U/L (73-393); POTASSIUM 3.4 MMOL/L (3.5-5.1); SODIUM 141 MMOL/L (135-145); TOTAL CARBON DIOXIDE 21.9 MMOL/L (24-32); eGFR > 90 ML/MIN
[2019-12-30 12:52] LABS: TOTAL CELLS COUNTED 100
[2019-12-30 12:53] LABS: PLATELET ESTIMATE NORMAL
[2019-12-30 13:26] LABS: URINE HCG NEGATIVE (NEG)
[2019-12-30 13:28] LABS: CLARITY,URINE CLOUDY (Clear); COLOR,URINE YELLOW (Yellow); GLUCOSE, URINE NEGATIVE (Neg); KETONES,URINE >=80 mg/dl (Neg); LEUKOCYTE ESTERASE ,URINE NEGATIVE (Neg); NITRITES, URINE NEGATIVE (Neg); OCCULT BLOOD,URINE LARGE (Neg); PH,URINE 8.5 (4.8-8.0); PROTEIN,URINE 100 mg/dl (Neg); UROBILINOGEN,URINE 0.2 E.U/dL (0.2-1.0)
[2019-12-30 13:30] LABS: UA COLLECTION TYPE CLN CATCH MIDSTREAM
[2019-12-30 13:35] LABS: MUCUS STRANDS MODERATE /LPF (Neg); SQUAMOUS EPITHELIAL CELL,UR MANY /LPF (FEW)
[2019-12-30 13:36] LABS: BACTERIA,URINE 1+ /HPF (Neg); WBC,URINE 0-4 /HPF (0-4)
[2019-12-30 13:37] LABS: AMORPHOUS PHOSPHATES 3+
[2019-12-30] MEDS ORDERED: diphenhydrAMINE 50 mg/ml inj IM ONE (14:00)
[2019-12-30 15:00] VITALS: BP 105/62
== END 2019-12-30 15:03 | disposition home or self-care (01) ==
LOC: ER 12:14
DX: F12.288 Cannabis dependence with other cannabis-induced disorder (principal); R11.2 Nausea with vomiting, unspecified; I10 Essential (primary) hypertension; J45.909 Unspecified asthma, uncomplicated; F41.9 Anxiety disorder, unspecified; F31.9 Bipolar disorder, unspecified; F12.90 Cannabis use, unspecified, uncomplicated; Z56.0 Unemployment, unspecified; Z88.0 Allergy status to penicillin; Z88.2 Allergy status to sulfonamides; Z79.899 Other long term (current) drug therapy
CPT/HCPCS: 36415; 80053; 81001; 81025; 83690; 85025; 96372; 99283; J1200; J1630; J2060

== ENCOUNTER 2020-04-01 11:19 | Emergency (ER) | payer MEDICAID, OTHER ==
[~2020-04-01] VITALS: Ht 165.1 cm; Wt 53.0 kg
[2020-04-01] MEDS ORDERED: normal saline 1000ML IV soln IVB ONE (11:35)
[2020-04-01] MEDS ORDERED: diphenhydrAMINE 50 mg/ml inj IV ONE (11:35)
[2020-04-01] MEDS ORDERED: metoclopramide 5 mg/ml inj IV ONE (11:35)
[2020-04-01 12:13] LABS: BASOPHILS % (AUTO) 0.2 % (0-1); EOSINOPHILS % (AUTO) 0.1 % (0-6); HEMATOCRIT 38.3 % (35.0-45.0); HEMOGLOBIN 12.9 g/dl (12.0-16.0); LYMPHOCYTES # (AUTO) 1.3 X10'3 (1.1-4.8); LYMPHOCYTES % (AUTO) 6.9 % (21-51); MEAN CORPUSCULAR HEMOGLOBIN 30.2 PG (27.0-31.0); MEAN CORPUSCULAR HGB CONC 33.6 g/dL (33.0-36.5); MEAN CORPUSCULAR VOLUME 89.8 FL (78-98); MEAN PLATELET VOLUME 8.5 FL (7.4-10.4); MONOCYTES # (AUTO) 1.3 X10'3 (0-0.9); NEUTROPHILS % (AUTO) 85.8 % (42-75); PLATELET COUNT 298 X10'3 (140-440); RED BLOOD COUNT 4.27 X10'6 (4.20-5.60); RED CELL DISTRIBUTION WIDTH 12.8 % (11.5-14.5); WHITE BLOOD COUNT 18.7 X10'3 (4.5-11.0)
[2020-04-01] MEDS ORDERED: ketorolac tromethamine 15mg/ml inj. IV ONE (12:15)
[2020-04-01 12:25] LABS: ALANINE AMINOTRANSFERASE 18 U/L (12-78); ALBUMIN 4.3 G/DL (3.4-5.0); ALBUMIN/GLOBULIN RATIO 1.1 (1.1-1.5); ALKALINE PHOSPHATASE 80 IU/L (46-116); ANION GAP 10 (8-16); ASPARTATE AMINO TRANSFERASE 27 U/L (10-37); BILIRUBIN,TOTAL 2.2 MG/DL (0.1-1.0); BLOOD UREA NITROGEN 18 MG/DL (7-18); BUN/CREATININE RATIO 21.7 (6.6-38.0); CALCIUM 9.6 MG/DL (8.5-10.1); CHLORIDE 97 MMOL/L (99-107); CREATININE 0.83 MG/DL (0.40-0.90); GLUCOSE 140 MG/DL (70-104); LIPASE 76 U/L (73-393); SODIUM 135 MMOL/L (135-145); TOTAL CARBON DIOXIDE 27.8 MMOL/L (24-32); TOTAL PROTEIN 8.2 G/DL (6.4-8.2); eGFR 85 ML/MIN
[2020-04-01 12:53] LABS: HCG SERUM QL NEGATIVE
--- NOTE | 2020-04-01 13:13 | NUR ---
Pt states she does not need the Toradol at this time.
[2020-04-01] MEDS ORDERED: POTASSIUM BICARB 20meq eff tab 20 MEQ TABLET.EFF PO ONE (13:15)
[2020-04-01] MEDS ORDERED: NAPR-1074 PO (13:18)
[2020-04-01 13:35] VITALS: BP 98/61
== END 2020-04-01 13:37 | disposition home or self-care (01) ==
LOC: ER 11:20
DX: N94.89 Other specified conditions associated with female genital organs and menstrual cycle (principal); R11.2 Nausea with vomiting, unspecified; I10 Essential (primary) hypertension; J45.909 Unspecified asthma, uncomplicated; F41.9 Anxiety disorder, unspecified; F31.9 Bipolar disorder, unspecified; F12.90 Cannabis use, unspecified, uncomplicated; Z56.0 Unemployment, unspecified; Z88.0 Allergy status to penicillin; Z88.2 Allergy status to sulfonamides; Z79.899 Other long term (current) drug therapy
CPT/HCPCS: 36415; 80053; 83690; 84703; 85025; 96361; 96374; 96375; 99284; J1200; J2765; J7030

== ENCOUNTER 2020-04-03 09:32 | Emergency (ER) | payer MEDICAID, OTHER ==
[~2020-04-03] VITALS: Ht 165.1 cm; Wt 55.6 kg
[~2020-04-03 09:32] MED LIST changes: +NAPR-1074 PO
[2020-04-03] MEDS ORDERED: ondansetron/PF 4mg/2ml inj IM ONE (09:55)
[2020-04-03] MEDS ORDERED: ketorolac trometh. 30mg/ml inj. IM ONE (09:55)
[2020-04-03 10:24] VITALS: BP 135/81
== END 2020-04-03 10:26 | disposition home or self-care (01) ==
LOC: ER 09:33
DX: N94.6 Dysmenorrhea, unspecified (principal); R11.2 Nausea with vomiting, unspecified; I10 Essential (primary) hypertension; J45.909 Unspecified asthma, uncomplicated; F41.9 Anxiety disorder, unspecified; F31.9 Bipolar disorder, unspecified; F12.90 Cannabis use, unspecified, uncomplicated; Z56.0 Unemployment, unspecified; Z88.0 Allergy status to penicillin; Z88.2 Allergy status to sulfonamides; Z79.899 Other long term (current) drug therapy
CPT/HCPCS: 96372; 99284; J1885; J2405

== ENCOUNTER 2020-04-26 18:06 | Emergency (ER) | payer MEDICAID, OTHER ==
[2020-04-27] MEDS ORDERED: PHE25R PR (10:46)
== END 2020-04-26 20:35 | disposition left against medical advice (07) ==
LOC: ER 18:07
DX: R11.10 Vomiting, unspecified (principal); Z53.21 Procedure and treatment not carried out due to patient leaving prior to being seen by health care provider

== ENCOUNTER 2020-04-26 21:46 | Emergency (ER) | payer MEDICAID, OTHER ==
[~2020-04-26] VITALS: Ht 165.1 cm; Wt 56.0 kg
[2020-04-26 22:20] LABS: BASOPHILS % (AUTO) 0.1 % (0-1); EOSINOPHILS % (AUTO) 0.1 % (0-6); HEMATOCRIT 38.9 % (35.0-45.0); HEMOGLOBIN 12.9 g/dl (12.0-16.0); LYMPHOCYTES % (AUTO) 3.4 % (21-51); MEAN CORPUSCULAR HEMOGLOBIN 29.6 PG (27.0-31.0); MEAN CORPUSCULAR HGB CONC 33.1 g/dL (33.0-36.5); MEAN CORPUSCULAR VOLUME 89.5 FL (78-98); MEAN PLATELET VOLUME 8.4 FL (7.4-10.4); MONOCYTES # (AUTO) 0.7 X10'3 (0-0.9); MONOCYTES % (AUTO) 2.4 % (2-12); PLATELET COUNT 352 X10'3 (140-440); RED BLOOD COUNT 4.35 X10'6 (4.20-5.60); RED CELL DISTRIBUTION WIDTH 12.9 % (11.5-14.5)
--- NOTE | 2020-04-26 22:32 | NUR ---
PT STATES SHE CANT PROVIDE URINE SAMPLE A THIS TIME. WILL CONTINUE TO ENCOURAGE SAMPLE AND CONTINUE TO MONTIOR.
[2020-04-26 22:35] LABS: ALANINE AMINOTRANSFERASE 17 U/L (12-78); ALBUMIN 4.2 G/DL (3.4-5.0); ALBUMIN/GLOBULIN RATIO 1.1 (1.1-1.5); ALKALINE PHOSPHATASE 67 IU/L (46-116); ANION GAP 16 (8-16); ASPARTATE AMINO TRANSFERASE 16 U/L (10-37); BLOOD UREA NITROGEN 18 MG/DL (7-18); BUN/CREATININE RATIO 22.8 (6.6-38.0); CALCIUM 9.5 MG/DL (8.5-10.1); CHLORIDE 105 MMOL/L (99-107); CREATININE 0.79 MG/DL (0.40-0.90); GLUCOSE 177 MG/DL (70-104); LIPASE 83 U/L (73-393); POTASSIUM 3.6 MMOL/L (3.5-5.1); SODIUM 140 MMOL/L (135-145); TOTAL CARBON DIOXIDE 18.7 MMOL/L (24-32); TOTAL PROTEIN 8.1 G/DL (6.4-8.2); eGFR 90 ML/MIN
[2020-04-26 22:41] LABS: WHITE BLOOD COUNT 27.6 X10'3 (4.5-11.0)
[2020-04-26] MEDS ORDERED: normal saline 1000ML IV soln IV ONE (22:50)
[2020-04-26] MEDS ORDERED: haloperidol lactate 5mg/ml inj IM ONE (22:50)
[2020-04-26] MEDS ORDERED: ondansetron/PF 4mg/2ml inj IV ONE (22:50)
--- NOTE | 2020-04-26 23:12 | NUR ---
PT REFUSING TO ALLOW BLOOD PRESSURE. ALL OTHER VITALS WNL
[2020-04-26 23:20] LABS: CLARITY,URINE CLOUDY (Clear); COLOR,URINE YELLOW (Yellow); GLUCOSE, URINE NEGATIVE (Neg); KETONES,URINE >=80 mg/dl (Neg); LEUKOCYTE ESTERASE ,URINE NEGATIVE (Neg); NITRITES, URINE NEGATIVE (Neg); OCCULT BLOOD,URINE TRACE-INTACT (Neg); PH,URINE 6.5 (4.8-8.0); PROTEIN,URINE 100 mg/dl (Neg); UA COLLECTION TYPE CLN CATCH MIDSTREAM; URINE HCG NEGATIVE (NEG); UROBILINOGEN,URINE 0.2 E.U/dL (0.2-1.0)
[2020-04-26 23:25] LABS: BACTERIA,URINE FEW /HPF (Neg); RBC,URINE 0-2 /HPF (0-2); SQUAMOUS EPITHELIAL CELL,UR MODERATE /LPF (FEW); WBC,URINE NONE SEEN /HPF (0-4)
[2020-04-26 23:32] LABS: URINE AMPHETAMINE SCREEN NEGATIVE (Neg); URINE BARBITUATE SCREEN NEGATIVE (Neg); URINE BENZODIAZEPINES SCREEN NEGATIVE (Neg); URINE CANNABINOID SCREEN POSITIVE (Neg); URINE COCAINE SCREEN NEGATIVE (Neg); URINE METHADONE SCREEN NEGATIVE (Neg); URINE OPIATE SCREEN NEGATIVE (Neg); URINE PHENCYCLIDINE SCREEN NEGATIVE (Neg)
[2020-04-27 00:21] VITALS: BP 100/56
[2020-04-27] MEDS ORDERED: PHE25R PR (10:46)
== END 2020-04-27 00:23 | disposition home or self-care (01) ==
LOC: ER 21:48
DX: R11.15 Cyclical vomiting syndrome unrelated to migraine (principal); R11.2 Nausea with vomiting, unspecified; I10 Essential (primary) hypertension; J45.909 Unspecified asthma, uncomplicated; F41.9 Anxiety disorder, unspecified; F31.9 Bipolar disorder, unspecified; F12.90 Cannabis use, unspecified, uncomplicated; Z56.0 Unemployment, unspecified; Z88.0 Allergy status to penicillin; Z88.2 Allergy status to sulfonamides; Z79.899 Other long term (current) drug therapy
CPT/HCPCS: 36415; 80053; 80305; 81001; 81025; 83690; 85025; 93005; 96361; 96372; 96374; 99284; J1630; J2405; J7030

== ENCOUNTER 2020-04-27 10:00 | Emergency (ER) | payer MEDICAID, OTHER ==
[~2020-04-27] VITALS: Ht 165.1 cm; Wt 56.0 kg
[2020-04-27 10:05] VITALS: BP 121/83
[2020-04-27] MEDS ORDERED: proCHLORperazine 25mg suppository RC PRN (10:40)
[2020-04-27] MEDS ORDERED: PHE25R PR (10:46)
== END 2020-04-27 11:19 | disposition home or self-care (01) ==
LOC: ER 10:00
DX: F41.9 Anxiety disorder, unspecified (principal); R11.2 Nausea with vomiting, unspecified; I10 Essential (primary) hypertension; J45.909 Unspecified asthma, uncomplicated; F31.9 Bipolar disorder, unspecified; F12.90 Cannabis use, unspecified, uncomplicated; Z56.0 Unemployment, unspecified; Z88.0 Allergy status to penicillin; Z88.2 Allergy status to sulfonamides; Z79.899 Other long term (current) drug therapy
CPT/HCPCS: 99283

== ENCOUNTER 2020-05-25 16:07 | Emergency (ER) | payer MEDICAID, OTHER ==
[~2020-05-25] VITALS: Ht 157.5 cm; Wt 51.0 kg
[~2020-05-25 16:07] MED LIST changes: +PHE25R PR
[2020-05-25] MEDS ORDERED: ondansetron/PF 4mg/2ml inj IV ONE (18:05)
[2020-05-25] MEDS ORDERED: normal saline 1000ML IV soln IVB ONE (18:05)
[2020-05-25] MEDS ORDERED: pantoprazole 40 MG vial IV ONE (18:05)
[2020-05-25] MEDS ORDERED: famotidine/PF 10 mg/ml inj IV ONE (18:05)
[2020-05-25 18:17] LABS: BASOPHILS # (AUTO) 0.1 X10'3 (0-0.2); BASOPHILS % (AUTO) 0.3 % (0-1); EOSINOPHILS % (AUTO) 0 % (0-6); HEMATOCRIT 37.7 % (35.0-45.0); HEMOGLOBIN 12.8 g/dl (12.0-16.0); LYMPHOCYTES # (AUTO) 1.3 X10'3 (1.1-4.8); LYMPHOCYTES % (AUTO) 5.2 % (21-51); MEAN CORPUSCULAR HEMOGLOBIN 30.4 PG (27.0-31.0); MEAN CORPUSCULAR HGB CONC 33.8 g/dL (33.0-36.5); MEAN CORPUSCULAR VOLUME 89.8 FL (78-98); MEAN PLATELET VOLUME 8.4 FL (7.4-10.4); MONOCYTES # (AUTO) 1.6 X10'3 (0-0.9); MONOCYTES % (AUTO) 6.7 % (2-12); NEUTROPHILS # (AUTO) 21.3 X10'3 (1.8-7.7); NEUTROPHILS % (AUTO) 87.8 % (42-75); PLATELET COUNT 324 X10'3 (140-440); RED CELL DISTRIBUTION WIDTH 12.9 % (11.5-14.5); WHITE BLOOD COUNT 24.2 X10'3 (4.5-11.0)
[2020-05-25 18:34] LABS: ALANINE AMINOTRANSFERASE 7 U/L (12-78); ALBUMIN 3.9 G/DL (3.4-5.0); ALBUMIN/GLOBULIN RATIO 0.9 (1.1-1.5); ALKALINE PHOSPHATASE 58 IU/L (46-116); ANION GAP 11 (8-16); ASPARTATE AMINO TRANSFERASE 20 U/L (10-37); BLOOD UREA NITROGEN 17 MG/DL (7-18); BUN/CREATININE RATIO 24.6 (6.6-38.0); CALCIUM 9.3 MG/DL (8.5-10.1); CHLORIDE 103 MMOL/L (99-107); CREATININE 0.69 MG/DL (0.40-0.90); GLUCOSE 127 MG/DL (70-104); POTASSIUM 3.3 MMOL/L (3.5-5.1); SODIUM 140 MMOL/L (135-145); TOTAL CARBON DIOXIDE 26.3 MMOL/L (24-32); TOTAL PROTEIN 8.2 G/DL (6.4-8.2); eGFR > 90 ML/MIN
[2020-05-25] MEDS ORDERED: ONDA4TAB6 PO (18:35)
[2020-05-25] MEDS ORDERED: PROC25SU31 RC (18:35)
[2020-05-25 18:39] LABS: URINE HCG NEGATIVE (NEG)
[2020-05-25 18:41] LABS: CLARITY,URINE CLEAR (Clear); COLOR,URINE YELLOW (Yellow); GLUCOSE, URINE NEGATIVE (Neg); KETONES,URINE 15 mg/dl (Neg); LEUKOCYTE ESTERASE ,URINE NEGATIVE (Neg); NITRITES, URINE NEGATIVE (Neg); OCCULT BLOOD,URINE TRACE-INTACT (Neg); PH,URINE 6.5 (4.8-8.0); PROTEIN,URINE >=300 mg/dl (Neg)
[2020-05-25 18:43] LABS: UA COLLECTION TYPE CLN CATCH MIDSTREAM
[2020-05-25 18:47] LABS: BACTERIA,URINE 1+ /HPF (Neg); RBC,URINE 0-2 /HPF (0-2); SQUAMOUS EPITHELIAL CELL,UR FEW /LPF (FEW); WBC,URINE 0-4 /HPF (0-4)
[2020-05-25 19:21] LABS: URINE AMPHETAMINE SCREEN NEGATIVE (Neg); URINE BARBITUATE SCREEN NEGATIVE (Neg); URINE BENZODIAZEPINES SCREEN NEGATIVE (Neg); URINE CANNABINOID SCREEN POSITIVE (Neg); URINE COCAINE SCREEN NEGATIVE (Neg); URINE METHADONE SCREEN NEGATIVE (Neg); URINE OPIATE SCREEN NEGATIVE (Neg); URINE PHENCYCLIDINE SCREEN NEGATIVE (Neg)
[2020-05-25 19:53] VITALS: BP 106/60
== END 2020-05-25 19:54 | disposition home or self-care (01) ==
LOC: ER 16:07
DX: K29.00 Acute gastritis without bleeding (principal); N93.9 Abnormal uterine and vaginal bleeding, unspecified; R11.2 Nausea with vomiting, unspecified; R10.9 Unspecified abdominal pain; I10 Essential (primary) hypertension; J45.909 Unspecified asthma, uncomplicated; F41.9 Anxiety disorder, unspecified; F31.9 Bipolar disorder, unspecified; F12.90 Cannabis use, unspecified, uncomplicated; Z56.0 Unemployment, unspecified; Z88.0 Allergy status to penicillin; Z88.2 Allergy status to sulfonamides; Z79.899 Other long term (current) drug therapy
CPT/HCPCS: 36415; 80053; 80305; 81001; 81025; 83605; 84145; 85025; 87040; 96361; 96374; 96375; 99284; C9113; J2405; J3490; J7030

== ENCOUNTER 2020-07-11 10:08 | Emergency (ER) | payer MEDICAID, OTHER ==
[~2020-07-11] VITALS: Ht 165.1 cm; Wt 60.0 kg
[2020-07-11] MEDS ORDERED: diphenhydrAMINE 50 mg/ml inj IV ONE (10:40)
[2020-07-11] MEDS ORDERED: metoclopramide 5 mg/ml inj IV ONE (10:40)
[2020-07-11 11:01] LABS: BASOPHILS % (AUTO) 0.1 % (0-1); LYMPHOCYTES # (AUTO) 1.5 X10'3 (1.1-4.8); LYMPHOCYTES % (AUTO) 5.3 % (21-51); NEUTROPHILS # (AUTO) 24.5 X10'3 (1.8-7.7); PLATELET COUNT 357 X10'3 (140-440); RED CELL DISTRIBUTION WIDTH 13.1 % (11.5-14.5)
[2020-07-11 11:02] LABS: EOSINOPHILS # (AUTO) 0.2 X10'3 (0-0.9); EOSINOPHILS % (AUTO) 0.8 % (0-6); HEMATOCRIT 39.8 % (35.0-45.0); HEMOGLOBIN 13.5 g/dl (12.0-16.0); MEAN CORPUSCULAR HEMOGLOBIN 30.6 PG (27.0-31.0); MEAN CORPUSCULAR HGB CONC 33.9 g/dL (33.0-36.5); MEAN CORPUSCULAR VOLUME 90.3 FL (78-98); MEAN PLATELET VOLUME 8.6 FL (7.4-10.4); MONOCYTES # (AUTO) 1.7 X10'3 (0-0.9); NEUTROPHILS % (AUTO) 87.8 % (42-75)
[2020-07-11 11:03] VITALS: BP 105/87
[2020-07-11 11:10] LABS: WHITE BLOOD COUNT 27.9 X10'3 (4.5-11.0)
[2020-07-11 11:13] LABS: ALANINE AMINOTRANSFERASE 20 U/L (12-78); ALBUMIN 4.2 G/DL (3.4-5.0); ALKALINE PHOSPHATASE 55 IU/L (46-116); ANION GAP 15 (8-16); ASPARTATE AMINO TRANSFERASE 17 U/L (10-37); BILIRUBIN,TOTAL 1.1 MG/DL (0.1-1.0); BLOOD UREA NITROGEN 17 MG/DL (7-18); BUN/CREATININE RATIO 20.7 (6.6-38.0); CALCIUM 9.7 MG/DL (8.5-10.1); CHLORIDE 101 MMOL/L (99-107); CREATININE 0.82 MG/DL (0.40-0.90); GLUCOSE 155 MG/DL (70-104); LIPASE 69 U/L (73-393); POTASSIUM 3.3 MMOL/L (3.5-5.1); SODIUM 138 MMOL/L (135-145); TOTAL CARBON DIOXIDE 22.1 MMOL/L (24-32); TOTAL PROTEIN 8.6 G/DL (6.4-8.2); eGFR 86 ML/MIN
--- NOTE | 2020-07-11 11:33 | NUR ---
AWARE OF ABNORMAL LABS
[2020-07-11 11:41] LABS: TOTAL CELLS COUNTED 100
[2020-07-11 11:42] LABS: PLATELET ESTIMATE NORMAL; TOXIC GRANULATION 1+
[2020-07-11 11:43] LABS: TOXIC VACUOLATION FEW
[2020-07-11 12:38] LABS: HCG SERUM QL NEGATIVE
== END 2020-07-11 12:32 | disposition home or self-care (01) ==
LOC: ER 10:08
DX: R11.2 Nausea with vomiting, unspecified (principal); R10.84 Generalized abdominal pain; J45.909 Unspecified asthma, uncomplicated; I10 Essential (primary) hypertension; F41.9 Anxiety disorder, unspecified; F31.9 Bipolar disorder, unspecified; F12.90 Cannabis use, unspecified, uncomplicated; Z56.0 Unemployment, unspecified; Z88.0 Allergy status to penicillin; Z88.2 Allergy status to sulfonamides; Z79.899 Other long term (current) drug therapy
CPT/HCPCS: 80053; 83690; 84703; 85007; 85025; 96374; 96375; 99284; J1200; J2765

== ENCOUNTER 2022-02-12 10:45 | Outpatient (CLI) | payer BC | END 2022-02-12 23:59 | disposition home or self-care (01) | LOC: LAB 10:45 | PROVIDERS: ATTEND Physician Assistant | DX: M79.671 Pain in right foot (principal) | CPT/HCPCS: 73630 ==

== ENCOUNTER 2023-01-29 15:09 | Emergency (ER) | payer SELFPAY | END 2023-01-29 16:30 | disposition left against medical advice (07) | LOC: ER 15:11 | DX: Z00.8 Encounter for other general examination (principal); Z53.21 Procedure and treatment not carried out due to patient leaving prior to being seen by health care provider ==

== ENCOUNTER 2023-04-09 18:02 | Emergency (ER) | payer MEDICAID ==
[~2023-04-09] VITALS: Ht 160 cm; Wt 50.0 kg
[2023-04-09 18:10] VITALS: BP 107/70
[2023-04-09] MEDS ORDERED: DOXYCYCLINE 100MG CAPSULE PO STA (19:14)
[2023-04-09] MEDS ORDERED: DOXY100C76 PO (19:14)
== END 2023-04-09 19:31 | disposition home or self-care (01) ==
LOC: ER 18:03
DX: L08.89 Other specified local infections of the skin and subcutaneous tissue (principal); I10 Essential (primary) hypertension; J45.909 Unspecified asthma, uncomplicated; F41.9 Anxiety disorder, unspecified; F31.9 Bipolar disorder, unspecified; F12.90 Cannabis use, unspecified, uncomplicated; Z56.0 Unemployment, unspecified; Z88.0 Allergy status to penicillin; Z88.2 Allergy status to sulfonamides; Z79.899 Other long term (current) drug therapy
CPT/HCPCS: 99283

== ENCOUNTER 2023-07-07 20:06 | Emergency (ER) | payer MEDICAID ==
[~2023-07-07] VITALS: Ht 160 cm; Wt 56.0 kg
[2023-07-07 20:12] VITALS: BP 103/68; PULSE 106; RESP 16; TEMP 98; O2SAT 98
[2023-07-07] MEDS ORDERED: ketorolac trometh inj. 60 MG/2 ML VIAL IM ONE (21:20)
== END 2023-07-07 21:36 | disposition home or self-care (01) ==
LOC: ER 20:07
DX: S80.01XA Contusion of right knee, initial encounter (principal); J45.909 Unspecified asthma, uncomplicated; I10 Essential (primary) hypertension; F31.9 Bipolar disorder, unspecified; Z56.0 Unemployment, unspecified; Z88.0 Allergy status to penicillin; Z88.2 Allergy status to sulfonamides; Z79.899 Other long term (current) drug therapy; W18.39XA Other fall on same level, initial encounter; Y93.89 Activity, other specified; Y92.89 Other specified places as the place of occurrence of the external cause; Y99.8 Other external cause status
CPT/HCPCS: 73564; 96372; 99283; J1885

== ENCOUNTER 2024-04-06 15:29 | Emergency (ER) | payer MEDICAID ==
[~2024-04-06] VITALS: Ht 160 cm; Wt 68.4 kg
[2024-04-06 16:59] LABS: BASOPHILS % (AUTO) 0.2 % (0-1); EOSINOPHILS # (AUTO) 0.1 X10'3 (0-0.9); EOSINOPHILS % (AUTO) 0.7 % (0-6); HEMATOCRIT 38.7 % (35.0-45.0); LYMPHOCYTES # (AUTO) 0.9 X10'3 (1.1-4.8); LYMPHOCYTES % (AUTO) 4.9 % (21-51); MEAN CORPUSCULAR HEMOGLOBIN 30.8 PG (27.0-31.0); MEAN CORPUSCULAR HGB CONC 33.7 g/dL (33.0-36.5); MEAN CORPUSCULAR VOLUME 91.5 FL (78-98); MEAN PLATELET VOLUME 8.4 FL (7.4-10.4); MONOCYTES # (AUTO) 1.7 X10'3 (0-0.9); MONOCYTES % (AUTO) 8.9 % (2-12); NEUTROPHILS % (AUTO) 85.3 % (42-75); PLATELET COUNT 305 X10'3 (140-440); RED BLOOD COUNT 4.23 X10'6 (4.20-5.60); RED CELL DISTRIBUTION WIDTH 12.9 % (11.5-14.5); WHITE BLOOD COUNT 18.7 X10'3 (4.5-11.0)
[2024-04-06 17:07] LABS: APTT 29 SECONDS (22-32); PROTHROMBIN TIME 10.6 SECONDS (9.0-12.0)
[2024-04-06 17:09] LABS: BILIRUBIN,URINE NEGATIVE (Neg); CLARITY,URINE SLIGHTLY CLOUDY (Clear); COLOR,URINE YELLOW (Yellow); GLUCOSE, URINE NEGATIVE (Neg); KETONES,URINE 15 mg/dl (Neg); LEUKOCYTE ESTERASE ,URINE SMALL (Neg); NITRITES, URINE POSITIVE (Neg); OCCULT BLOOD,URINE TRACE-INTACT (Neg); PH,URINE 7.5 (4.8-8.0); PROTEIN,URINE 30 mg/dl (Neg)
[2024-04-06 17:12] LABS: ALANINE AMINOTRANSFERASE 26 U/L (12-78); ALBUMIN 3.7 G/DL (3.4-5.0); ALBUMIN/GLOBULIN RATIO 0.9 (1.1-1.5); ALKALINE PHOSPHATASE 80 IU/L (46-116); ANION GAP 9 (8-16); ASPARTATE AMINO TRANSFERASE 14 U/L (10-37); BILIRUBIN,TOTAL 1.2 MG/DL (0.1-1.0); BLOOD UREA NITROGEN 9 MG/DL (7-18); BUN/CREATININE RATIO 15.5 (10.0-20.0); CALCIUM 9.2 MG/DL (8.5-10.1); CHLORIDE 100 MMOL/L (99-107); CREATININE 0.58 MG/DL (0.40-0.90); GLUCOSE 94 MG/DL (70-104); POTASSIUM 3.6 MMOL/L (3.5-5.1); SODIUM 133 MMOL/L (135-145); TOTAL CARBON DIOXIDE 23.7 MMOL/L (24-32); TOTAL PROTEIN 7.8 G/DL (6.4-8.2); eCRCL 121 ML/MIN; eGFR > 90 ML/MIN
[2024-04-06 17:15] LABS: UA COLLECTION TYPE CLN CATCH MIDSTREAM
[2024-04-06 17:18] LABS: BACTERIA,URINE 4+ /HPF (Neg); SQUAMOUS EPITHELIAL CELL,UR MANY /LPF (FEW); WBC,URINE TNTC /HPF (0-4)
[2024-04-06 17:36] LABS: HCG SERUM QL POSITIVE
[2024-04-06 17:44] LABS: FREE T4 (FREE THYROXINE) 1.04 NG/DL (0.73-1.40); PRO BRAIN NATRIURETIC PEPTIDE 33 PG/ML (0-125); THYROID STIMULATING HORMONE 0.89 ulU/ml (0.34-4.50)
[2024-04-06 17:57] LABS: BETA HCG,QUANTITATIVE 356 mIU/ml
[2024-04-06] MEDS ORDERED: CEPH-585 PO (18:18)
[2024-04-06 18:26] VITALS: BP 122/68; PULSE 88; RESP 14; TEMP 98.4; O2SAT 98
[2024-04-06 18:58] LABS: BILIRUBIN,URINE NEGATIVE (Neg); CLARITY,URINE CLOUDY (Clear); COLOR,URINE YELLOW (Yellow); GLUCOSE, URINE NEGATIVE (Neg); KETONES,URINE 15 mg/dl (Neg); LEUKOCYTE ESTERASE ,URINE MODERATE (Neg); NITRITES, URINE POSITIVE (Neg); OCCULT BLOOD,URINE TRACE-INTACT (Neg); PROTEIN,URINE 30 mg/dl (Neg)
[2024-04-06 19:13] LABS: UA COLLECTION TYPE CLN CATCH MIDSTREAM; WBC,URINE TNTC /HPF (0-4)
[2024-04-06 19:14] LABS: BACTERIA,URINE 4+ /HPF (Neg); RENAL CELLS, URINE FEW /HPF; SQUAMOUS EPITHELIAL CELL,UR FEW /LPF (FEW); TRANSITIONAL EPI CELLS,URINE FEW /HPF
== END 2024-04-06 18:27 | disposition home or self-care (01) ==
LOC: ER 15:30
DX: O23.41 Unspecified infection of urinary tract in pregnancy, first trimester (principal); N39.0 Urinary tract infection, site not specified; I10 Essential (primary) hypertension; J45.909 Unspecified asthma, uncomplicated; F41.9 Anxiety disorder, unspecified; F32.A Depression, unspecified; F12.90 Cannabis use, unspecified, uncomplicated; Z56.0 Unemployment, unspecified; Z20.822 Contact with and (suspected) exposure to COVID-19; Z3A.01 Less than 8 weeks gestation of pregnancy
CPT/HCPCS: 36415; 80053; 81001; 83880; 84439; 84443; 84484; 84702; 84703; 85025; 85610; 85730; 87077; 87088; 87186; 87502; 87503; 87811; 93005; 99284